=== PATIENT | female | born 1935 | race Caucasian/White ===

== ENCOUNTER 2022-06-10 13:07 | Inpatient (IN) | payer MEDICARE, OTHER ==
[~2022-06-10] VITALS: Ht 160 cm; Wt 59.4 kg
--- NOTE | 2022-06-10 13:47 | NUR ---
TECH AT BEDSIDE FOR EKG
--- NOTE | 2022-06-10 13:48 | NUR ---
RAPID FLU AND COVID SWABS OBTAINED AND SENT TO LAB
[2022-06-10 13:54] LABS: BASOPHILS % (AUTO) 0.2 % (0.0-2.0); EOSINOPHILS % (AUTO) 0.2 % (0.0-6.0); HEMATOCRIT 22 % (33-45); HEMOGLOBIN 7.1 g/dL (11.5-14.8); LYMPHOCYTES # (AUTO) 0.1 K/uL (0.8-4.8); LYMPHOCYTES % (AUTO) 5.9 % (20.0-44.0); MEAN CORPUSCULAR HGB CONC 33 g/dl (31.0-36.0); MEAN CORPUSCULAR VOLUME 113 fL (82-100); MONOCYTES # (AUTO) 0.1 K/uL (0.1-1.30); MONOCYTES % (AUTO) 4.8 % (2.0-12.0); NEUTROPHILS # (AUTO) 1.6 K/uL (1.8-8.9); NEUTROPHILS % (AUTO) 88.9 % (43.0-81.0); PLATELET COUNT (AUTO) 312 K/uL (150-450)
--- NOTE | 2022-06-10 14:43 | NUR ---
MOVE SHEET SUBMITTED.
[2022-06-10 14:50] LABS: CALCIUM, SERUM 7.6 mg/dL (8.5-10.1); CARBON DIOXIDE 23 mmol/L (21-32); CHLORIDE 101 mmol/L (98-107); CREATININE 1.4 mg/dL (0.6-1.3); GLUCOSE 108 mg/dL (74-106); POTASSIUM 3.8 mmol/L (3.5-5.1); SODIUM SERUM 133 mmol/L (136-145); UREA NITROGEN, BLOOD 24 mg/dL (7-18)
[2022-06-10 14:58] LABS: RED BLOOD CELL COUNT(AUTO) 1.93 MIL/uL (4.0-5.2)
[2022-06-10 14:59] LABS: WHITE BLOOD COUNT (AUTO) 1.8 K/uL (4.3-11.0)
[2022-06-10] MEDS ORDERED: VANCOMYCIN 1 GM in IV D5W 250 ML IV ONE (15:00)
[2022-06-10] MEDS ORDERED: CEFEPIME 1 GM in IV D5W 50 ML IV ONE (15:00)
[2022-06-10 15:06] LABS: ALANINE AMINOTRANSFERASE 17 U/L (12-78); ALBUMIN 2.7 g/dL (3.4-5.0); ALKALINE PHOSPHATASE 229 U/L (46-116); ASPARTATE AMINOTRANSFERASE 29 U/L (15-37); BILIRUBIN,DIRECT 0.1 mg/dL (0.0-0.2); BILIRUBIN,TOTAL 0.3 mg/dL (0.2-1.0); TOTAL PROTEIN, SERUM 6.2 g/dL (6.4-8.2)
--- NOTE | 2022-06-10 15:19 | NUR ---
printed circuit boards contact printer : [phone] JUAN ANTONIO daughter
[2022-06-10] MEDS ORDERED: IV NS 0.9% 1,000 ML IV ONE (15:30)
--- NOTE | 2022-06-10 15:52 | NUR ---
[facility] CALLED TUBE LANCER PAGED.
--- NOTE | 2022-06-10 16:14 | NUR ---
GOT BED ASSIGNMENT 264
--- NOTE | 2022-06-10 16:20 | NUR ---
report given to rosangela stevens
[2022-06-10] MEDS ORDERED: MORPHINE SULFATE INJ 2 MG/ML DISP.SYRIN IV PRN (16:30)
[2022-06-10] MEDS ORDERED: DEXAMETHASONE SOD PHOSPHATE 6 MG in IV D5W 50 ML IV SCH (16:30)
[2022-06-10] MEDS ORDERED: ALBUTEROL SULFATE 8 GM HFA.AER.AD IH PRN (17:00)
[2022-06-10 17:18] LABS: OCCULT BLOOD STOOL NEGATIVE (NEGATIVE)
[2022-06-10 17:29] LABS: HEMOGLOBIN 7.5 g/dL (11.5-14.8)
--- NOTE | 2022-06-10 18:54 | NUR ---
PT TRANSFERED TO 264 VIA [facility] ACLS PROTOCOL. WARM HANDOFF GIVEN TO [employer] INDUSTRIAL TECHNOLOGY TEACHER
--- NOTE | 2022-06-10 18:55 | NUR ---
ICU/RN PT TRANSFER FROM ER.AWAKE,ALERT .ORIENTED. BELARUSIAN SPEAKING. V/S STABLE.AFEBRILE.PLACED ON MONITOR.SINUS RYTHM.CONTINENT.PT HAS COVID, PNA. DR GAR AT BED SIDE.
[2022-06-10 19:00] VITALS: BP 122/60
[2022-06-10] MEDS ORDERED: REMDESIVIR (CHARGED) 200 MG, *LOADING DOSE 1 EA in IV NS 0.9% 210 ML IV ONE (19:00)
[2022-06-10 19:11] LABS: D-DIMER 1.98 mg/L(FEU (0.17-0.50)
[2022-06-10] MEDS: CEFTRIAXONE 1 G in IV D5W 50 ML IV SCH (19:53)
[2022-06-10] MEDS: IPRATROPIUM/ALBUTEROL INHALER IH SCH (19:54)
[2022-06-10 20:00] VITALS: BP_SYST 115; BP_SYST 117; BP_DIAS 53; BP_DIAS 65
--- NOTE | 2022-06-10 20:00 | NUR ---
GROUP SALES COORDINATOR NOTES Received patient lying awake in semi-raphael's position, A/O x2-3, Estonian speaking, afebrile. Attached to 02 at 4lpm via nasal cannula, tolerating well breathing non labored without effort. crackles noted at right lower lung upon auscultation posteriorly. IV access at both forearm #20, patent and intact. no signs and symptoms of pain. offered food but refused to eat. completed initial and physical assessment, spoke to the daughter. shes able to move to the bed independently. will continue to monitor.
[2022-06-10] MEDS ORDERED: ONDA4TAB5 PO (20:28)
[2022-06-10] MEDS ORDERED: HYDR500C2 PO (20:28)
[2022-06-10] MEDS ORDERED: FURO40TA5 PO (20:28)
[2022-06-10] MEDS ORDERED: METO25TA6 PO (20:28)
[2022-06-10] MEDS ORDERED: VIT C PO (20:28)
[2022-06-10] MEDS ORDERED: [UNRECOGNIZED DRUG - OTHER] PO (20:28)
[2022-06-10] MEDS ORDERED: BENZ200C53 PO (20:28)
[2022-06-10] MEDS ORDERED: LOSA50TA39 PO (20:28)
[2022-06-10] MEDS ORDERED: APRAZOLAM PO (20:28)
[2022-06-10] MEDS ORDERED: SUMA100T16 PO (20:28)
[2022-06-10] MEDS ORDERED: ASA (20:28)
[2022-06-10] MEDS ORDERED: ESOM40CA PO (20:28)
[2022-06-10] MEDS ORDERED: AMLO-213 PO (20:28)
[2022-06-10] MEDS ORDERED: LORA-259 PO (20:28)
[2022-06-10] MEDS ORDERED: CHOL400T15 PO (20:28)
[2022-06-10] MEDS ORDERED: ACET-73 PO (20:28)
[2022-06-10] MEDS ORDERED: QUET50TA PO (20:28)
[2022-06-10] MEDS ORDERED: SERT25TA PO (20:28)
[2022-06-10 21:00] VITALS: BP 115/53
[2022-06-10] MEDS: HEPARIN SODIUM, PORCINE 5000 UNITS/1 ML VIAL SQ SCH (21:00)
--- NOTE | 2022-06-10 21:10 | NUR ---
ICU NOTES Patient PT 10.7 INR 1.02,PTT 33.1 done at 18.20 and H/H 7.1/22 done at 1639.Patient has Heparin SQ ordered for 2100. There is an order from Dr. Morfin to do another PT/INR AT 1934.Verified with DR Gabino Spears if to give Heparin SQ. Per to hold Heparin tonight and do ordered lab works.
[2022-06-10 22:00] VITALS: BP 114/50
[2022-06-10 22:12] LABS: ALBUMIN 2.7 g/dL (3.4-5.0); BILIRUBIN,DIRECT 0.1 mg/dL (0.0-0.2); BILIRUBIN,TOTAL 0.3 mg/dL (0.2-1.0); TOTAL PROTEIN, SERUM 6.4 g/dL (6.4-8.2)
[2022-06-10 22:36] LABS: BAND % (MANUAL) 1 % (0.0-5.0); LYMPHOCYTES % (MANUAL) 9 % (16-48); MONOCYTES % (MANUAL) 6 % (0-11.0); NEUTROPHILS % (MANUAL) 84 (42-76)
[2022-06-10 23:00] VITALS: BP 97/47
[2022-06-11] VITALS (17 sets, daily range): BP systolic 101–141; BP diastolic 31–89
[2022-06-11] MEDS: IPRATROPIUM/ALBUTEROL INHALER IH SCH ×5 (00:26→23:36)
--- NOTE | 2022-06-11 05:37 | NUR ---
SPICE ROOM WORKER NOTES Patient refused lab drawn x2. Explained importance of checking labs x2. still refused.
--- NOTE | 2022-06-11 07:40 | NUR ---
ICU/RN PT IS RESTING ON 4L N/C SAT O2-96%.NO S/S OF DISTRESS.NO SOB.NO PAIN REPORTED AT THIS TIME.V/S STABLE,AFEBRILE.IV-HL.SKIN INTACT.PT USE BEDSIDE COMMODE.PT REFUSED AM LABS
[2022-06-11] MEDS: HEPARIN SODIUM, PORCINE 5000 UNITS/1 ML VIAL SQ SCH ×2 (08:16→21:00)
[2022-06-11] MEDS: DEXAMETHASONE SOD PHOSPHATE 10 MG/ML VIAL IV SCH (08:28)
[2022-06-11 11:00] LABS: BASOPHILS % (AUTO) 0.1 % (0.0-2.0); EOSINOPHILS % (AUTO) 0.3 % (0.0-6.0); HEMATOCRIT 23 % (33-45); HEMOGLOBIN 7.4 g/dL (11.5-14.8); LYMPHOCYTES # (AUTO) 0.1 K/uL (0.8-4.8); LYMPHOCYTES % (AUTO) 5.2 % (20.0-44.0); MEAN CORPUSCULAR HGB CONC 33 g/dl (31.0-36.0); MEAN CORPUSCULAR VOLUME 111 fL (82-100); MONOCYTES # (AUTO) 0.1 K/uL (0.1-1.30); MONOCYTES % (AUTO) 3.9 % (2.0-12.0); NEUTROPHILS # (AUTO) 1.6 K/uL (1.8-8.9); NEUTROPHILS % (AUTO) 90.5 % (43.0-81.0); PLATELET COUNT (AUTO) 312 K/uL (150-450); RED BLOOD CELL COUNT(AUTO) 2.04 MIL/uL (4.0-5.2)
[2022-06-11 11:04] LABS: WHITE BLOOD COUNT (AUTO) 1.8 K/uL (4.3-11.0)
[2022-06-11 11:11] LABS: CALCIUM, SERUM 7.8 mg/dL (8.5-10.1); POTASSIUM 3.8 mmol/L (3.5-5.1)
[2022-06-11 11:28] LABS: ALBUMIN 2.6 g/dL (3.4-5.0); BILIRUBIN,DIRECT 0.1 mg/dL (0.0-0.2); BILIRUBIN,TOTAL 0.3 mg/dL (0.2-1.0); TOTAL PROTEIN, SERUM 6.1 g/dL (6.4-8.2)
[2022-06-11] MEDS: IV D5/ 0.9% NACL 1,000 ML IV PRN (11:42)
--- NOTE | 2022-06-11 12:00 | NUR ---
ICU/RN NEW MID LINE INSERTED. ON THE LEFT UPPER ARM. PM CARE PROVIDED.DUE MEDS ARE GIVEN ORDERED.PT EATS 50% FROM HER MEAL TRAY. SEEN THE PT OK TO TRANSFER TO TELE UNIT.
[2022-06-11] MEDS: ENSURE ENLIVE CHOC 237 ML CAN PO SCH ×2 (12:33→16:37)
--- NOTE | 2022-06-11 13:40 | NUR ---
ICU/RN PT TRANSFER TO TELE UNIT IN STABLE CONDITION.V/S STABLE,AFEBRILE. NO PAIN REPORTED AT THIS TIME.
--- NOTE | 2022-06-11 14:30 | NUR ---
JACQUELINE RN NOTES RECEIVED PATIENT FROM ICU, RENNY RN FROM ICU GAVE BEDSIDE REPORT. PATIENT IS ALERT AND VERBALLY RESPONSIVE, COMORAN SPEAKING ONLY, NOTED WITH ANXIETY. ON 4LPM 02 VIA NC TOLERATING WELL, NO SOB NOTED, RESPIRATION EVEN AND UNLABORED. DENIES ANY PAIN. NOTED WITH FRANCISCO MIDLINE PATENT AND INTACT FLUSHES WELL, ON IV FLUIDS RUNNING ORDERED. ON TELE MONITOR WITH SR HR 78. CALL LIGHT WITHIN REACH. BED IN LOWEST POSITION. BED ALARM ON. CLARIFY REMDISIVIR ORDER TO DR. MORALES, PER OK TO START. NOTED AND CARRIED OUT. PLAN OF CARE CONTINUE.
[2022-06-11 14:40] LABS: THYROID STIMULATING HORMONE 0.436 uIU/mL (0.358-3.74)
[2022-06-11] MEDS ORDERED: REMDESIVIR (CHARGED) 200 MG, *LOADING DOSE 1 EA in IV NS 0.9% 210 ML IV ONE (15:00)
[2022-06-11 15:06] LABS: C-REACTIVE PROTEIN 7.2 mg/dL (0.0-0.9)
--- NOTE | 2022-06-11 16:00 | NUR ---
NOTED PATIENT IS VERY ANXIOUS AND SCARED, NOTED PATIENT IS TAKING PRN ATIVAN AND LORAZEPAM AT HOME, DR. BLAS NOTIFIED, AWAITING FOR ANSWER.
--- NOTE | 2022-06-11 16:35 | NUR ---
PATIENT SPOKE TO DAUGHTER, PATIENT IS REFUSING FOOD THAT DAUGHTER BROUGHT. PLAN OF CARE CONTINUE.
[2022-06-11] MEDS: CEFTRIAXONE 1 G in IV D5W 50 ML IV SCH (17:11)
[2022-06-11] MEDS: ACETAMINOPHEN 325 MG TABLET PO PRN (18:07)
--- NOTE | 2022-06-11 18:10 | NUR ---
NOTED PATIENT DOESN'T WANT TO EAT DINNER, TRIED FEEDING HER, PATIENT SAID NO, NOTED PATIENT CRYING AND VERY ANXIOUS, INFORMED DAUGHTER VIA PHONE, DAUGHTER WANTED TO VISIT AND FEED PATIENT, I TOLD DAUGHTER TO TELL THE PATIENT TO EAT, PER DAUGHTER SHE TOLD THE MOTHER BUT SHE WON'T LISTEN. INFORMED NURSERYMAN ASSISTANT MAJO AND CHARGE NURSE BRITTANY ABOUT THE DAUGHTER WANTING TO COME HERE AND FEED THE PATIENT, PER NURSERYMAN ASSISTANT FAMILY MEMBER CAN'T COME INSIDE THE ROOM AND THEY CAN ONLY DO PHONECALL OR VIDEOCALL, WILL INFORMED THE DAUGHTER OF THE HOSPITAL POLICY.
--- NOTE | 2022-06-11 18:36 | NUR ---
TELE CLOSING RN NOTES PATIENT IS ALERT AND VERBALLY RESPONSIVE, VIETNAMESE SPEAKING ONLY, NOTED WITH ANXIETY. ON 2LPM 02 VIA NC TOLERATING WELL, NO SOB NOTED, RESPIRATION EVEN AND UNLABORED. DENIES ANY PAIN AT THIS MOMENT. NOTED WITH FRANCISCO MIDLINE PATENT AND INTACT FLUSHES WELL, ON IV FLUIDS RUNNING ORDERED. ON TELE MONITOR WITH SR. CALL LIGHT WITHIN REACH. BED IN LOWEST POSITION. BED ALARM ON. WILL ENDORSE TO NIGHT NURSE FOR YOSELIN.
[2022-06-11] MEDS ORDERED: REMDESIVIR (CHARGED) 100 MG in IV NS 0.9% 230 ML IV SCH (19:00)
--- NOTE | 2022-06-11 19:14 | NUR ---
RECEIVED NEW ORDER FROM DR. WATKINS ATIVAN 0.5 MG PO Q 6 HRS PRN FOR ANXIETY, NOTED AND CARRIED OUT, ENDORSED TO TISH CONNORS.
--- NOTE | 2022-06-11 19:20 | NUR ---
CALLED DAUGHTER JUAN ANTONIO TO INFORMED THAT PER MARKET ASSET PROTECTION MANAGER MAJO THAT SHE CANNOT COME IN TO FEED THE PATIENT, PER JUAN ANTONIO SHE'S ON HER WAY TO THE HOSPITAL ALREADY AND IF SHE CAN'T COME IN SHE WILL TAKE TRANSFER HER MOTHER TO A DIFFERENT HOSPITAL, INFORMED CHARGE NURSE BETSY CONNORS.
--- NOTE | 2022-06-11 19:40 | NUR ---
RN OPENING NOTES RECEIVED PATIENT AWAKE IN BED ALERT AND VERBALLY RESPONSIVE, MACEDONIAN SPEAKING ONLY, NOTED WITH ANXIETY AND GRIMACING. ON 2LPM 02 VIA NC TOLERATING WELL, NO SOB NOTED, RESPIRATION EVEN AND UNLABORED. DENIES ANY PAIN. NOTED WITH FRANCISCO MIDLINE PATENT AND INTACT FLUSHES WELL, ON IV FLUIDS RUNNING ORDERED. ON TELE MONITOR WITH SR HR 78. CALL LIGHT WITHIN REACH. BED IN LOWEST POSITION. BED ALARM ON. PT HAS BEEN REFUSING TO EAT FOOD, WILL CONTINUE TO MONITOR THROUGHOUT THE SHIFT.
--- NOTE | 2022-06-11 21:40 | NUR ---
RN NOTE NOTIFIED MD ABOUT HGB AT 7.4 NO S/SX OF BLEEDING, PT HAS SCHEDULED HEPARIN, MD ORDERED TO HOLD DOSE FOR NOW. WILL CONT TO MONITOR.
[2022-06-12] VITALS: BP 133/80
[2022-06-12 04:00] VITALS: BP 119/60
[2022-06-12 04:56] LABS: BASOPHILS % (MANUAL) 0 % (0.0-2.0); EOSINOPHILS % (MANUAL) 0 % (0-4); LYMPHOCYTES % (MANUAL) 9 % (16-48); MONOCYTES % (MANUAL) 4 % (0-11.0); NEUTROPHILS % (MANUAL) 87 (42-76)
[2022-06-12] MEDS: IPRATROPIUM/ALBUTEROL INHALER IH SCH ×3 (05:24→18:12)
[2022-06-12] MEDS: IV D5/ 0.9% NACL 1,000 ML IV PRN (05:25)
--- NOTE | 2022-06-12 06:35 | NUR ---
RN CLOSING NOTES PATIENT SLEEPING IN BED BUT EASILY AROUSABLE TO TOUCH AND VOICE, ALERT AND VERBALLY RESPONSIVE, LATVIAN SPEAKING ONLY, ON 2LPM 02 VIA NC TOLERATING WELL, NO SOB NOTED, RESPIRATION EVEN AND UNLABORED. DENIES ANY PAIN. NOTED WITH FRANCISCO MIDLINE PATENT AND INTACT FLUSHES WELL, ON IV FLUIDS RUNNING ORDERED. ON TELE MONITOR WITH SR HR 78. CALL LIGHT WITHIN REACH. BED IN LOWEST POSITION. BED ALARM ON. ALL DUE MEDS GIVEN, KEPT DRY AND CLEAN, WILL ENDORSE TO AM SHIFT NURSE FOR CONTINUITY OF CARE.
[2022-06-12 07:07] LABS: BASOPHILS % (AUTO) 0.2 % (0.0-2.0); EOSINOPHILS % (AUTO) 0.1 % (0.0-6.0); HEMATOCRIT 23 % (33-45); HEMOGLOBIN 7.6 g/dL (11.5-14.8); LYMPHOCYTES # (AUTO) 0.1 K/uL (0.8-4.8); LYMPHOCYTES % (AUTO) 8.1 % (20.0-44.0); MEAN CORPUSCULAR HGB CONC 33 g/dl (31.0-36.0); MEAN CORPUSCULAR VOLUME 111 fL (82-100); MONOCYTES # (AUTO) 0.2 K/uL (0.1-1.30); MONOCYTES % (AUTO) 10.5 % (2.0-12.0); NEUTROPHILS # (AUTO) 1.4 K/uL (1.8-8.9); NEUTROPHILS % (AUTO) 81.1 % (43.0-81.0); PLATELET COUNT (AUTO) 385 K/uL (150-450); RED BLOOD CELL COUNT(AUTO) 2.07 MIL/uL (4.0-5.2)
[2022-06-12 07:13] LABS: CALCIUM, SERUM 8.2 mg/dL (8.5-10.1); CREATININE 0.9 mg/dL (0.6-1.3); MAGNESIUM 1.7 mg/dL (1.8-2.4); PHOSPHORUS 2.7 mg/dL (2.5-4.9); POTASSIUM 3.8 mmol/L (3.5-5.1)
[2022-06-12 07:15] LABS: WHITE BLOOD COUNT (AUTO) 1.8 K/uL (4.3-11.0)
[2022-06-12 07:21] LABS: ALBUMIN 2.6 g/dL (3.4-5.0); BILIRUBIN,DIRECT 0.1 mg/dL (0.0-0.2); BILIRUBIN,TOTAL 0.2 mg/dL (0.2-1.0); TOTAL PROTEIN, SERUM 6.3 g/dL (6.4-8.2)
[2022-06-12] MEDS: ENSURE ENLIVE CHOC 237 ML CAN PO SCH ×3 (07:32→16:09)
[2022-06-12 08:00] VITALS: BP 125/61
[2022-06-12 08:07] LABS: IMMUNOGLOBULIN A, SERUM 350 mg/dL (64-422); IMMUNOGLOBULIN G, SERUM 1025 mg/dL (586-1602); IMMUNOGLOBULIN M, SERUM 60 mg/dL (26-217)
[2022-06-12] MEDS: DEXAMETHASONE SOD PHOSPHATE 10 MG/ML VIAL IV SCH (08:23)
[2022-06-12] MEDS: HEPARIN SODIUM, PORCINE 5000 UNITS/1 ML VIAL SQ SCH ×2 (08:25→21:50)
[2022-06-12] MEDS ORDERED: MAGNESIUM OXIDE 400 MG TABLET PO ONE (10:00)
[2022-06-12 12:00] VITALS: BP 133/70
[2022-06-12 12:07] LABS: *ANA ANTI-CENTROMERE B AB <0.2 AI (0.0-0.9); *ANA ANTI-DNA(DS) AB, QN <1 IU/mL (0-9); *ANA ANTI-JO-1 <0.2 AI (0.0-0.9); *ANA ANTICHROMATIN ANTIBODY <0.2 AI (0.0-0.9); *ANA RNP ANTIBODIES 1.5 AI (0.0-0.9); *ANA SJOGREN'S ANTI-SS-A <0.2 AI (0.0-0.9); *ANA SJOGREN'S ANTI-SS-B <0.2 AI (0.0-0.9); *ANAANTI-SCLERODERMA-70 AB <0.2 AI (0.0-0.9); *ANASMITH AB <0.2 AI (0.0-0.9)
[2022-06-12 14:07] LABS: *SPE A/G RATIO 0.8 (0.7-1.7); *SPE ALPHA-1-GLOBULIN 0.3 g/dL (0.0-0.4); *SPE M-SPIKE Not Observed g/dL (Not Observed)
[2022-06-12] MEDS: REMDESIVIR (CHARGED) 100 MG in IV NS 0.9% 100 ML IV SCH (15:45)
[2022-06-12 16:00] VITALS: BP 131/75
[2022-06-12] MEDS: FERROUS SULFATE (325 MG) 325 MG/TAB TABLET PO SCH (16:08)
[2022-06-12] MEDS: CEFTRIAXONE 1 G in IV D5W 50 ML IV SCH (17:37)
--- NOTE | 2022-06-12 18:31 | NUR ---
RN CLOSING NOTES PATIENT SLEEPING IN BED, ABUSABLE TO TOUCH AND VOICE, YAKUT SPEAKING ONLY, ON NC 2L TOLERATING WELL, NO SOB NOTED, RESPIRATION EVEN AND UNLABORED. DENIES ANY PAIN. NOTED WITH FRANCISCO MIDLINE PATENT AND INTACT FLUSHES WELL, ON IV FLUIDS RUNNING ORDERED. ON TELE MONITOR WITH SR HR 78. CALL LIGHT WITHIN REACH. BED IN LOWEST POSITION. BED ALARM ON. ALL DUE MEDS GIVEN, KEPT DRY AND CLEAN, WILL ENDORSE TO THE POT FLUXER NURSE FOR CONTINUITY OF CARE.
[2022-06-12 20:00] VITALS: BP 137/76
--- NOTE | 2022-06-12 20:06 | NUR ---
CLOTH HAULER OPENING NOTES: RECEIVED PATIENT AWAKE IN BED, BED IN LOW POSITION CALL LIGHTS WITHIN REACH, NO COMPLAIN OF PAIN AND DISCOMFORT AT THIS TIME ON O2 INHALATION AT 2LPM SATURATING WELL, PATIENT IS A/OX3 CROATIAN SPEAKING ABLE TO MAKE NEEDS KNOWN, COVID (+) NO SOB WAS OBSERVED, ON TELE MONITOR- SR-79, IV LINE AT FRANCISCO ML WITH ONGOING D5 NS @50ML/HR INFUSING WELL, PATIENT KEPT CLEAN AND DRY ALL NEEDS MET WILL CONTINUE TO MONITOR.
[2022-06-12 22:10] LABS: LYMPHOCYTES % (MANUAL) 14 % (16-48); MONOCYTES % (MANUAL) 8 % (0-11.0); NEUTROPHILS % (MANUAL) 78 (42-76)
[2022-06-13] VITALS: BP 135/75
[2022-06-13] MEDS: IPRATROPIUM/ALBUTEROL INHALER IH SCH ×2 (00:19→06:12)
[2022-06-13 04:00] VITALS: BP 124/66
[2022-06-13 06:18] LABS: ALANINE AMINOTRANSFERASE 23 U/L (12-78); ALBUMIN 2.7 g/dL (3.4-5.0); ALKALINE PHOSPHATASE 255 U/L (46-116); ASPARTATE AMINOTRANSFERASE 34 U/L (15-37); BILIRUBIN,DIRECT 0.1 mg/dL (0.0-0.2); BILIRUBIN,TOTAL 0.3 mg/dL (0.2-1.0); CALCIUM, SERUM 8.4 mg/dL (8.5-10.1); CARBON DIOXIDE 26 mmol/L (21-32); CHLORIDE 103 mmol/L (98-107); CREATININE 0.9 mg/dL (0.6-1.3); GLUCOSE 119 mg/dL (74-106); POTASSIUM 3.9 mmol/L (3.5-5.1); SODIUM SERUM 139 mmol/L (136-145); TOTAL PROTEIN, SERUM 6.4 g/dL (6.4-8.2); UREA NITROGEN, BLOOD 21 mg/dL (7-18)
--- NOTE | 2022-06-13 06:30 | NUR ---
CONTROL BOARD OPERATOR CLOSING NOTES: RECEIVED PATIENT SLEEP IN BED COMFORTABLY, AROUSABLE TO VERBAL STIMULI, BED IN LOW POSITION CALL LIGHT WITHIN REACH, NO COMPLAIN OF PAIN AND DISCOMFORT AT THIS TIME, ON O2 INHALATION AT 2 LPM SATURATING WELL, PATIENT IS A/OX3 ABLE TO MAKE NEEDS KNOWN, ON TELE MONITOR-SE90 PATIENT KEPT CLEAN AND DRY ALL NEEDS MET ENDORSE TO INCOMING SHIFT.
[2022-06-13] MEDS: IV D5/ 0.9% NACL 1,000 ML IV PRN (06:44)
--- NOTE | 2022-06-13 07:30 | NUR ---
TIRE BLADDER MAKER OPENING NOTES RECEIVED PATIENT ON BED AWAKE AND A/O X2, SOUTH KOREAN SPEAKING. ON O2 AT 2LPM VIA NASAL CANNULA TOLERATING WELL. NO SOB NOTED. NOT IN DISTRESS. WITH COMPLAINTS OF HEADACHE AT THE SCALE OF 4/10. COMFORT MEASURES PROVIDED. WITH IV ACCESS AT THE LEFT UPPER ARM MIDLINE WITH IVF RUNNING D5NS AT 50ML/HR INFUSING WELL. ON TELE MONITOR CURRENTLY READING SINUS RHYTHM AT 80BPM. SAFETY MEASURES IN PLACED. CALL LIGHT WITHIN REACH. BED ON LOWEST LOCKED POSITION, SIDE RAILS UP X2. WILL CONTINUE TO MONITOR.
[2022-06-13 08:00] VITALS: BP 116/66
[2022-06-13 08:49] LABS: BASOPHILS % (AUTO) 0.4 % (0.0-2.0); EOSINOPHILS % (AUTO) 0.1 % (0.0-6.0); HEMATOCRIT 25 % (33-45); HEMOGLOBIN 8.1 g/dL (11.5-14.8); LYMPHOCYTES # (AUTO) 0.1 K/uL (0.8-4.8); LYMPHOCYTES % (AUTO) 4.4 % (20.0-44.0); MEAN CORPUSCULAR HGB CONC 33 g/dl (31.0-36.0); MEAN CORPUSCULAR VOLUME 111 fL (82-100); MONOCYTES # (AUTO) 0.2 K/uL (0.1-1.30); MONOCYTES % (AUTO) 9.9 % (2.0-12.0); NEUTROPHILS % (AUTO) 85.2 % (43.0-81.0); PLATELET COUNT (AUTO) 428 K/uL (150-450); RED BLOOD CELL COUNT(AUTO) 2.24 MIL/uL (4.0-5.2); WHITE BLOOD COUNT (AUTO) 2.4 K/uL (4.3-11.0)
[2022-06-13] MEDS: FERROUS SULFATE (325 MG) 325 MG/TAB TABLET PO SCH ×2 (09:02→16:50)
[2022-06-13] MEDS: DEXAMETHASONE SOD PHOSPHATE 10 MG/ML VIAL IV SCH (09:02)
[2022-06-13] MEDS: ACETAMINOPHEN 325 MG TABLET PO PRN ×2 (09:02→20:19)
[2022-06-13] MEDS: HEPARIN SODIUM, PORCINE 5000 UNITS/1 ML VIAL SQ SCH ×2 (09:05→20:11)
[2022-06-13] MEDS: ENSURE ENLIVE CHOC 237 ML CAN PO SCH ×3 (09:08→16:50)
[2022-06-13 11:43] LABS: LYMPHOCYTES % (MANUAL) 11 % (16-48); MONOCYTES % (MANUAL) 6 % (0-11.0); NEUTROPHILS % (MANUAL) 83 (42-76)
[2022-06-13 12:00] VITALS: BP_SYST 116; BP_SYST 124; BP_DIAS 63; BP_DIAS 66
[2022-06-13] MEDS: ONDANSETRON HCL/PF 4 MG/2 ML VIAL IVP PRN (14:03)
[2022-06-13] MEDS: LORAZEPAM 0.5 MG TABLET PO PRN (14:06)
[2022-06-13 16:00] VITALS: BP 125/68
[2022-06-13] MEDS: REMDESIVIR (CHARGED) 100 MG in IV NS 0.9% 100 ML IV SCH (16:50)
[2022-06-13] MEDS: CEFTRIAXONE 1 G in IV D5W 50 ML IV SCH (17:59)
--- NOTE | 2022-06-13 19:30 | NUR ---
PUBLIC ADDRESS SYSTEM OPERATOR CLOSING NOTES PATIENT ON BED RESTING AND A/O X2, WELSH SPEAKING. ON O2 AT 2LPM VIA NASAL CANNULA TOLERATING WELL. NO SOB NOTED. NOT IN DISTRESS. WITH NO COMPLAINTS OF PAIN OR DISCOMFORT AT THIS TIME. WITH IV ACCESS AT THE LEFT UPPER ARM MIDLINE WITH IVF RUNNING D5NS AT 50ML/HR INFUSING WELL. ON TELE MONITOR CURRENTLY READING SINUS RHYTHM AT 83BPM. DUE MEDS GIVEN. SAFETY MEASURES IN PLACED. CALL LIGHT WITHIN REACH. BED ON LOWEST LOCKED POSITION, SIDE RAILS UP X2. WILL ENDORSE TO NEXT SHIFT FOR YOSELIN.
--- NOTE | 2022-06-13 19:45 | NUR ---
BOILER RELINER NOTES PATIENT ON BED RESTING AND A/O X2, KIS[place]ILI SPEAKING. ON O2 AT 2LPM VIA NASAL CANNULA TOLERATING WELL. NO SOB NOTED. NOT IN DISTRESS. WITH NO COMPLAINTS OF PAIN OR DISCOMFORT AT THIS TIME. WITH IV ACCESS AT THE LEFT UPPER ARM MIDLINE WITH IVF RUNNING D5NS AT 50ML/HR INFUSING WELL. ON TELE MONITOR CURRENTLY READING SINUS RHYTHM AT 83BPM.CALL LIGHT WITHIN REACH. BED ON LOWEST LOCKED POSITION, SIDE RAILS UP X2.
--- NOTE | 2022-06-13 20:26 | NUR ---
RN NOTE PT REPORTING MILD PAIN PRN TYLENOL GIVEN TOLERATED WELL. NO NAUSEA REPORTED AT THIS TIME.
[2022-06-13 20:29] VITALS: BP 116/69
[2022-06-14] VITALS: BP 135/77
[2022-06-14 04:24] VITALS: BP 146/90
[2022-06-14] MEDS: IPRATROPIUM/ALBUTEROL INHALER IH SCH ×4 (06:00→17:37)
[2022-06-14 07:02] LABS: BASOPHILS % (AUTO) 0.2 % (0.0-2.0); HEMATOCRIT 24 % (33-45); HEMOGLOBIN 7.9 g/dL (11.5-14.8); LYMPHOCYTES # (AUTO) 0.2 K/uL (0.8-4.8); LYMPHOCYTES % (AUTO) 5.1 % (20.0-44.0); MEAN CORPUSCULAR HGB CONC 33 g/dl (31.0-36.0); MEAN CORPUSCULAR VOLUME 110 fL (82-100); MONOCYTES # (AUTO) 0.4 K/uL (0.1-1.30); NEUTROPHILS # (AUTO) 2.7 K/uL (1.8-8.9); NEUTROPHILS % (AUTO) 82.7 % (43.0-81.0); PLATELET COUNT (AUTO) 423 K/uL (150-450); RED BLOOD CELL COUNT(AUTO) 2.21 MIL/uL (4.0-5.2); WHITE BLOOD COUNT (AUTO) 3.3 K/uL (4.3-11.0)
[2022-06-14 07:34] LABS: ALBUMIN 2.4 g/dL (3.4-5.0); BILIRUBIN,DIRECT 0.1 mg/dL (0.0-0.2); BILIRUBIN,TOTAL 0.3 mg/dL (0.2-1.0); CALCIUM, SERUM 7.9 mg/dL (8.5-10.1); CREATININE 0.9 mg/dL (0.6-1.3); POTASSIUM 3.6 mmol/L (3.5-5.1); TOTAL PROTEIN, SERUM 5.7 g/dL (6.4-8.2)
[2022-06-14 08:00] VITALS: BP 118/71
[2022-06-14] MEDS: ENSURE ENLIVE CHOC 237 ML CAN PO SCH ×3 (08:00→17:36)
--- NOTE | 2022-06-14 08:08 | NUR ---
RN OPENING NOTE RECEIVED PATIENT IN BED, AO X 2, SPANISH SPEAKING. ABLE TO RESPONDS ALL STIMULI. RESPIRATORY EVEN AND UNLABORED ON OXYGEN AT 2Ls VIA NC. IN NO ACUTE DISTRESS OBSERVED. SKIN IS WARM TO TOUCH, KEEP CLEAN/DRY. KEPT ELEVATED HOB FOR ASPIRATION PRECAUTION/ENSURE AIRWAY, ALSO LOWEST BED POSITIONED. BED ALARM IS ON AT ALL THE TIME FOR SAFETY. CALL LIGHT WITHIN REACH, WILL CONTINUE TO MONITOR.
[2022-06-14] MEDS: FERROUS SULFATE (325 MG) 325 MG/TAB TABLET PO SCH ×2 (09:01→17:36)
[2022-06-14] MEDS: DEXAMETHASONE SOD PHOSPHATE 10 MG/ML VIAL IV SCH (09:01)
[2022-06-14] MEDS: HEPARIN SODIUM, PORCINE 5000 UNITS/1 ML VIAL SQ SCH ×2 (09:05→21:07)
[2022-06-14] MEDS: ONDANSETRON HCL/PF 4 MG/2 ML VIAL IVP PRN ×2 (11:54→21:18)
[2022-06-14] MEDS: ACETAMINOPHEN 325 MG TABLET PO PRN (14:26)
[2022-06-14] MEDS: REMDESIVIR (CHARGED) 100 MG in IV NS 0.9% 100 ML IV SCH (14:26)
[2022-06-14 16:00] VITALS: BP 130/66
[2022-06-14] MEDS: CEFTRIAXONE 1 G in IV D5W 50 ML IV SCH (17:35)
--- NOTE | 2022-06-14 18:38 | NUR ---
RN CLOSING NOTE PATIENT RESTING IN BED. IN NO ACUTE DISTRESS OBSERVED. NO ADVERSE REACTION OBSERVED FROM ABX TREATMENT. RESPIRATORY EVEN AND UNLABORED IN ROM AIR. IN NO RESPIRATORY DISTRESS NOTED. SKIN IS WARM TO TOUCH KEEP CLEAN/DRY. ENCOURAGED PATIENT TO ORAL FLUID INTAKE TOLERATED. KEPT ELEVATED HOB FOR ENSURE AIRWAY/ASPIRATION PRECAUTION, AND LOWEST BED POSITION. BED ALARM IS ON AT ALL THE TIME FOR SAFETY. CALL LIGHT WITHIN REACH, WILL ENDORSE LIFE SKILLS WORKER.
--- NOTE | 2022-06-14 19:55 | NUR ---
STEAM POWERPLANT SUPERVISOR OPENING NOTE PATIENT AWAKE IN BED, PT ALERT/ORIENTED X 2, PT PRIMARILY ALBANIAN SPEAKING. PATIENT STABLE ON RA, NO S/S OF DISTRESS OR SOB NOTED, BREATHING EVEN AND UNLABORED. PT ON EXTERNAL MANAGER BANKING READING SINUS RHYTHM, HR: 62. FRANCISCO MIDLINE INTACT AND INFUSING D5NS @ 50 ML/HR. SAFETY MEASURES IN PLACE: CALL LIGHT WITHIN REACH, SIDE RAILS UP X 3, BED LOCKED IN LOWEST POSITION, HOB ELEVATED, BED ALARM ON. WILL CONTINUE TO MONITOR PATIENT
[2022-06-14 20:00] VITALS: BP 109/68
--- NOTE | 2022-06-14 21:18 | NUR ---
FORESTRY PILOT NOTE PATIENT NOTED WITH 1 EPISODE OF EMESIS, ZOFRAN 4 MG IV GIVEN ORDERED. WILL CONTINUE TO MONITOR PATIENT
[2022-06-14 21:40] LABS: LYMPHOCYTES % (MANUAL) 6 % (16-48); MONOCYTES % (MANUAL) 12 % (0-11.0); NEUTROPHILS % (MANUAL) 82 (42-76)
[2022-06-15] VITALS: BP 151/65
[2022-06-15] MEDS: IPRATROPIUM/ALBUTEROL INHALER IH SCH ×5 (00:51→23:29)
--- NOTE | 2022-06-15 01:18 | NUR ---
WEB PROGRAMMER NOTE PATIENT'S SPO2 ON ROOM AIR DROPPED TO 86%, PATIENT PLACED BACK ON 2 LPM OF 02 VIA NASAL CANNULA, SPO2 NOW 96%. WILL CONTINUE TO MONITOR
[2022-06-15] MEDS: LORAZEPAM 0.5 MG TABLET PO PRN (01:21)
--- NOTE | 2022-06-15 03:05 | NUR ---
PACKAGING INSPECTOR NOTE PATIENT RESTLESS AND ANXIOUS. PRN ATIVAN 0.5 MG PO GIVEN ORDERED, WILL CONTINUE TO MONITOR
[2022-06-15 04:00] VITALS: BP 137/71
[2022-06-15] MEDS: IV D5/ 0.9% NACL 1,000 ML IV PRN (05:04)
--- NOTE | 2022-06-15 06:25 | NUR ---
LOG OPERATIONS COORDINATOR CLOSING NOTE PATIENT SLEEPING IN BED, PT ALERT/ORIENTED X 2, PT SETSWANA SPEAKING. PATIENT STABLE ON 2LPM OF 02 VIA NASAL CANNULA, NO S/S OF DISTRESS OR SOB NOTED, BREATHING EVEN AND UNLABORED. ATTEMPTED TO TITRATE PATIENT TO RA, HOWEVER, SPO2 DROPPED TO 86% AFTER A COUPLE HOURS. PT ON EXTERNAL CIVIL ESTIMATOR READING SINUS ELEN, HR: 55 AT THIS TIME. FRANCISCO MIDLINE INTACT AND INFUSING D5NS @ 50 ML/HR. PATIENT WAS CALM AND SLEPT WELL AFTER ATIVAN WAS GIVEN. MEDICATIONS GIVEN ORDERED, PT NEEDS MET THROUGHOUT SHIFT. SAFETY MEASURES IN PLACE: CALL LIGHT WITHIN REACH, SIDE RAILS UP X 3, BED LOCKED IN LOWEST POSITION, HOB ELEVATED, BED ALARM ON. WILL ENDORSE TO DAYSHIFT RN FOR CONTINUITY OF CARE
[2022-06-15 08:00] VITALS: BP 122/76
[2022-06-15] MEDS: FERROUS SULFATE (325 MG) 325 MG/TAB TABLET PO SCH ×2 (08:17→17:43)
[2022-06-15] MEDS: DEXAMETHASONE SOD PHOSPHATE 10 MG/ML VIAL IV SCH (08:17)
[2022-06-15] MEDS: ENSURE ENLIVE CHOC 237 ML CAN PO SCH ×3 (08:17→17:43)
[2022-06-15] MEDS: HEPARIN SODIUM, PORCINE 5000 UNITS/1 ML VIAL SQ SCH ×2 (08:20→20:46)
--- NOTE | 2022-06-15 11:15 | NUR ---
RN NOTE DR. MATT ORDERED PATIENT ON ROOM AIR. WILL MONITOR PATIENT'S OXYGEN LEVEL AND WILL LET THE KNOW. PATIENT IS GOING HOME TOMORROW BUT THE DAUGHTER IS LOOKING FOR A HOME HEALTH. PATIENT NEEDS TO HAVE OXYGEN AT HOME.
[2022-06-15 12:00] VITALS: BP 130/66
[2022-06-15 12:28] LABS: BASOPHILS % (AUTO) 0.1 % (0.0-2.0); EOSINOPHILS % (AUTO) 0.1 % (0.0-6.0); HEMATOCRIT 25 % (33-45); LYMPHOCYTES # (AUTO) 0.1 K/uL (0.8-4.8); LYMPHOCYTES % (AUTO) 2.4 % (20.0-44.0); MEAN CORPUSCULAR HGB CONC 32 g/dl (31.0-36.0); MEAN CORPUSCULAR VOLUME 111 fL (82-100); MONOCYTES # (AUTO) 0.3 K/uL (0.1-1.30); NEUTROPHILS # (AUTO) 3.9 K/uL (1.8-8.9); NEUTROPHILS % (AUTO) 90.4 % (43.0-81.0); PLATELET COUNT (AUTO) 446 K/uL (150-450); RED BLOOD CELL COUNT(AUTO) 2.23 MIL/uL (4.0-5.2); WHITE BLOOD COUNT (AUTO) 4.3 K/uL (4.3-11.0)
[2022-06-15 12:51] LABS: CALCIUM, SERUM 7.9 mg/dL (8.5-10.1); CREATININE 0.9 mg/dL (0.6-1.3); POTASSIUM 3.5 mmol/L (3.5-5.1)
[2022-06-15 12:57] LABS: ALBUMIN 2.6 g/dL (3.4-5.0); BILIRUBIN,DIRECT 0.1 mg/dL (0.0-0.2); BILIRUBIN,TOTAL 0.4 mg/dL (0.2-1.0); TOTAL PROTEIN, SERUM 5.7 g/dL (6.4-8.2)
[2022-06-15] MEDS: REMDESIVIR (CHARGED) 100 MG in IV NS 0.9% 100 ML IV SCH (15:05)
--- NOTE | 2022-06-15 15:58 | NUR ---
RN NOTE PATIENT ON ROOM AIR O2 SAT 81. I PUT PATIENT BACK ON NC 2 LITERS. TRADE MARK EXAMINER NOTIFIED THAT PATIENT NEEDS OXYGEN AT HOME BEFORE DISCHARGE.
[2022-06-15 16:00] VITALS: BP 126/66
[2022-06-15] MEDS: CEFTRIAXONE 1 G in IV D5W 50 ML IV SCH (17:47)
--- NOTE | 2022-06-15 18:54 | NUR ---
RN CLOSING NOTES PATIENT SLEEPING IN BED, ABUSABLE TO TOUCH AND VOICE, FAROESE SPEAKING ONLY, ON NC 2L TOLERATING WELL, NO SOB NOTED, RESPIRATION EVEN AND UNLABORED. DENIES ANY PAIN. NOTED WITH FRANCISCO MIDLINE PATENT AND INTACT FLUSHES WELL, ON IV FLUIDS RUNNING ORDERED. ON TELE MONITOR WITH SR HR 76. CALL LIGHT WITHIN REACH. BED IN LOWEST POSITION. BED ALARM ON. ALL DUE MEDS GIVEN, KEPT DRY AND CLEAN, WILL ENDORSE TO THE DAMAGE INSIDE ADJUSTER NURSE FOR CONTINUITY OF CARE.
[2022-06-15 19:26] LABS: BAND % (MANUAL) 2 % (0.0-5.0); LYMPHOCYTES % (MANUAL) 6 % (16-48); MONOCYTES % (MANUAL) 12 % (0-11.0); NEUTROPHILS % (MANUAL) 80 (42-76)
--- NOTE | 2022-06-15 19:30 | NUR ---
PATIENT SLEEPING IN BED, EASILY AWAKEN TO TOUCH AND VOICE, A/O X4, ESTONIAN SPEAKING, ON O2 VIA NC AT 2LPM. TOLERATING WELL, NO SOB NOTED, WITH FRANCISCO MIDLINE INFUSING D5NS AT 50ML/HR. ON TELE MONITOR. SAFETY MEASURES IN PLACE. WILL CONTINUE PLAN OF CARE.
[2022-06-15 20:00] VITALS: BP 123/58
[2022-06-16] VITALS: BP 131/62
[2022-06-16] MEDS: IV D5/ 0.9% NACL 1,000 ML IV PRN (00:16)
[2022-06-16] MEDS: ACETAMINOPHEN 325 MG TABLET PO PRN ×2 (00:28→14:45)
[2022-06-16 04:00] VITALS: BP 139/75
[2022-06-16] MEDS: IPRATROPIUM/ALBUTEROL INHALER IH SCH ×2 (05:04→12:13)
--- NOTE | 2022-06-16 06:30 | NUR ---
PATIENT SLEEPING IN BED, EASILY AWAKEN TO TOUCH AND VOICE, A/O X3, MALTESE SPEAKING, ON O2 VIA NC AT 2LPM. TOLERATING WELL, NO SOB NOTED, WITH FRANCISCO MIDLINE INFUSING D5NS AT 50ML/HR. ON TELE MONITOR. DUE MEDS AND PRN MEDS GIVEN NEEEDED AND ORDERED. NEEDS ATTENDED. SAFETY MEASURES MAINTAINED. WILL ENDORSE TO NEXT NURSE ON DUTY FOR CONTINUITY OF CARE.
[2022-06-16 07:05] LABS: BASOPHILS % (AUTO) 0.1 % (0.0-2.0); EOSINOPHILS % (AUTO) 0.1 % (0.0-6.0); HEMATOCRIT 25 % (33-45); HEMOGLOBIN 8.2 g/dL (11.5-14.8); LYMPHOCYTES # (AUTO) 0.2 K/uL (0.8-4.8); LYMPHOCYTES % (AUTO) 4.3 % (20.0-44.0); MEAN CORPUSCULAR HGB CONC 33 g/dl (31.0-36.0); MEAN CORPUSCULAR VOLUME 109 fL (82-100); MONOCYTES # (AUTO) 0.6 K/uL (0.1-1.30); MONOCYTES % (AUTO) 13.9 % (2.0-12.0); NEUTROPHILS # (AUTO) 3.5 K/uL (1.8-8.9); NEUTROPHILS % (AUTO) 81.6 % (43.0-81.0); PLATELET COUNT (AUTO) 389 K/uL (150-450); RED BLOOD CELL COUNT(AUTO) 2.28 MIL/uL (4.0-5.2); WHITE BLOOD COUNT (AUTO) 4.3 K/uL (4.3-11.0)
[2022-06-16 07:31] LABS: ALBUMIN 2.5 g/dL (3.4-5.0); BILIRUBIN,DIRECT 0.1 mg/dL (0.0-0.2); BILIRUBIN,TOTAL 0.3 mg/dL (0.2-1.0); CREATININE 0.9 mg/dL (0.6-1.3); POTASSIUM 3.7 mmol/L (3.5-5.1); TOTAL PROTEIN, SERUM 5.6 g/dL (6.4-8.2)
[2022-06-16 08:00] VITALS: BP 111/60
[2022-06-16] MEDS: ENSURE ENLIVE CHOC 237 ML CAN PO SCH ×2 (08:35→12:13)
[2022-06-16] MEDS: FERROUS SULFATE (325 MG) 325 MG/TAB TABLET PO SCH (08:41)
[2022-06-16] MEDS: DEXAMETHASONE SOD PHOSPHATE 10 MG/ML VIAL IV SCH (08:41)
[2022-06-16] MEDS: HEPARIN SODIUM, PORCINE 5000 UNITS/1 ML VIAL SQ SCH (08:46)
[2022-06-16] MEDS ORDERED: DEXA4TAB PO (11:29)
[2022-06-16] MEDS ORDERED: DOCU-141 PO (11:29)
[2022-06-16] MEDS ORDERED: FERR325T28 PO (11:29)
[2022-06-16 12:00] VITALS: BP 118/53
--- NOTE | 2022-06-16 14:30 | NUR ---
BOAT FUELER NOTE PATIENT STABLE UPON DISCHARGE, PATIENT'S DAUGHTER JUAN ANTONIO CAME AFTER HER MOM. PATIENT TAKEN HOME WITH DAUGHTERS CAR. PATIENT WILL HAVE OXYGEN AT HOME. HOME MEDICATION TAKEN FROM PHARMACY GIVEN TO PATIENT'S DAUGHTER. BELONGING LIST SIGNED BY PATIENT'S DAUGHTER AND PLACED IN THE CHART. ALL DISCHARGE INSTRUCTIONS GIVEN TO THE DAUGHTER. INSTRUCTED ON THE NEW PO MEDICATIONS. MIDLINE REMOVED BEFORE DISCHARGE PATIENT HAD NO IV MEDICATION AT HOME.
[2022-06-16 22:30] LABS: LYMPHOCYTES % (MANUAL) 12 % (16-48); MONOCYTES % (MANUAL) 8 % (0-11.0)
[2022-06-16 22:36] LABS: NEUTROPHILS % (MANUAL) 80 (42-76)
== END 2022-06-16 14:55 | disposition home health service (06) | DRG 177 ==
LOC: ER 13:13 → ICU 16:19 → TELE1 06-11 14:24
PROVIDERS: ADMIT Internal Medicine; ATTEND Internal Medicine
PROC: XW033E5 Introduction of Remdesivir Anti-infective into Peripheral Vein, Percutaneous Approach, New Technology Group 5 (ICD-10-PCS; principal; 2022-06-10)
PROC: 05H633Z Insertion of Infusion Device into Left Subclavian Vein, Percutaneous Approach (ICD-10-PCS; 2022-06-11)
PROC: B547ZZA Ultrasonography of Left Subclavian Vein, Guidance (ICD-10-PCS; 2022-06-11)
DX: U07.1 COVID-19 (principal); J12.82 Pneumonia due to coronavirus disease 2019; J96.01 Acute respiratory failure with hypoxia; N17.0 Acute kidney failure with tubular necrosis; J15.6 Pneumonia due to other Gram-negative bacteria; D47.1 Chronic myeloproliferative disease; C95.90 Leukemia, unspecified not having achieved remission; E87.1 Hypo-osmolality and hyponatremia; E44.0 Moderate protein-calorie malnutrition; J98.11 Atelectasis; D53.9 Nutritional anemia, unspecified; E88.09 Other disorders of plasma-protein metabolism, not elsewhere classified; F03.90 Unspecified dementia, unspecified severity, without behavioral disturbance, psychotic disturbance, mood disturbance, and anxiety; E86.0 Dehydration; F09 Unspecified mental disorder due to known physiological condition; E83.42 Hypomagnesemia
CPT/HCPCS: 36415; 71045-TC; 80048-TC; 80076-TC; 82272-TC; 82607-TC; 82728-TC; 82784; 83540-TC; 83605-TC; 83735-TC; 83880; 84100-TC; 84155; 84165; 84443-TC; 84484-TC; 85025-TC; 85027-TC; 85378-TC; 85396; 85610-TC; 85730-TC; 86140-TC; 86225; 86235; 86334; 86431-TC; 86706; 86803; 87040-TC; 87081-TC; 87086-TC; 87340; A4216; C9803; G0378; J0692; J0696; J1100; J1644; J2405; J3370; J7030; J7042; J7050; J7060

== ENCOUNTER 2023-08-12 19:59 | Inpatient (IN) | payer MEDICARE, OTHER ==
[~2023-08-12] VITALS: Ht 162.6 cm; Wt 42.2 kg
[~2023-08-12 19:59] MED LIST: ACET-73 PO; AMLO-213 PO; APRAZOLAM PO; ASA; BENZ200C53 PO; CHOL400T15 PO; DEXA4TAB PO; DOCU-141 PO; ESOM40CA PO; FERR325T28 PO; FURO40TA5 PO; HYDR500C2 PO; LORA-259 PO; LOSA50TA39 PO; METO25TA6 PO; ONDA4TAB5 PO; QUET50TA PO; SERT25TA PO; SUMA100T16 PO; VIT C PO; [UNRECOGNIZED DRUG - OTHER] PO
[2023-08-12 21:27] LABS: BASOPHILS % (AUTO) 0.2 % (0.0-2.0); EOSINOPHILS % (AUTO) 0.3 % (0.0-6.0); HEMATOCRIT 27 % (33-45); HEMOGLOBIN 8.7 g/dL (11.5-14.8); LYMPHOCYTES # (AUTO) 0.5 K/uL (0.8-4.8); LYMPHOCYTES % (AUTO) 5.4 % (20.0-44.0); MEAN CORPUSCULAR HEMOGLOBIN 34 PG (26.0-33.0); MEAN CORPUSCULAR HGB CONC 32 g/dl (31.0-36.0); MEAN CORPUSCULAR VOLUME 106 fL (82-100); MONOCYTES # (AUTO) 0.6 K/uL (0.1-1.30); MONOCYTES % (AUTO) 7.1 % (2.0-12.0); NEUTROPHILS # (AUTO) 7.8 K/uL (1.8-8.9); PLATELET COUNT (AUTO) 304 K/uL (150-450); RED BLOOD CELL COUNT(AUTO) 2.55 MIL/uL (4.0-5.2); RED CELL DISTRIBUTION WIDTH 17.9 % (11.5-15.0)
[2023-08-12] MEDS ORDERED: ONDANSETRON HCL/PF 4 MG/2 ML VIAL ONE (21:36)
[2023-08-12 21:41] LABS: ALANINE AMINOTRANSFERASE 31 U/L (12-78); ALBUMIN 3.2 g/dL (3.4-5.0); ALKALINE PHOSPHATASE 220 U/L (46-116); ASPARTATE AMINOTRANSFERASE 21 U/L (15-37); BILIRUBIN,DIRECT 0.1 mg/dL (0.0-0.2); BILIRUBIN,TOTAL 0.4 mg/dL (0.2-1.0); CALCIUM, SERUM 8.9 mg/dL (8.5-10.1); CARBON DIOXIDE 22 mmol/L (21-32); CHLORIDE 105 mmol/L (98-107); CREATININE 1.3 mg/dL (0.6-1.3); GLUCOSE 102 mg/dL (74-106); POTASSIUM 3.7 mmol/L (3.5-5.1); SODIUM SERUM 138 mmol/L (136-145); TOTAL PROTEIN, SERUM 7.7 g/dL (6.4-8.2); UREA NITROGEN, BLOOD 23 mg/dL (7-18)
[2023-08-12] MEDS: IV NS 0.9% 1,000 ML BAG IV ONE (21:45)
[2023-08-12] MEDS: ONDANSETRON HCL/PF - ER 4 MG/2 ML VIAL IV ONE (21:45)
[2023-08-12 21:52] LABS: PROTHROMBIN TIME 10.3 SECS (9.2-11.1)
[2023-08-12] MEDS: ONDANSETRON 4 MG TAB.RAPDIS PO ONE (21:52)
[2023-08-12 22:04] LABS: PARTIAL THROMBOPLASTIN TIME 37.2 SEC (24.3-34.3)
[2023-08-12 22:34] LABS: ANISOCYTOSIS 1+; LYMPHOCYTES % (MANUAL) 7 % (16-48); MONOCYTES % (MANUAL) 2 % (0-11.0); NEUTROPHILS % (MANUAL) 91 (42-76); PLATELET ESTIMATE ADEQUATE
[2023-08-12 22:35] LABS: OVALOCYTES 1+
[2023-08-12 22:36] LABS: APPEARANCE,URINE CLEAR (CLEAR); BILIRUBIN,URINE NEGATIVE (NEGATIVE); BLOOD, URINE NEGATIVE Ery/uL (NEGATIVE); COLOR,URINE YELLOW (YELLOW); KETONES,URINE NEGATIVE (NEGATIVE); LEUKOCYTE ESTERASE ,URINE TRACE (NEGATIVE); NITRITE, URINE NEGATIVE (NEGATIVE); PROTEIN,URINE 1+ mg/dl (NEGATIVE); UGLUCOSE NEGATIVE (NEGATIVE); UROBILINOGEN,URINE 0.2 EU/dL (0.2)
[2023-08-12 23:16] LABS: ADD URINE CULTURE YES; BACTERIA,URINE Moderate /HPF (None Seen); RBC,URINE NONE SEEN /HPF (0-2)
[2023-08-12] MEDS: ENOXAPARIN SODIUM 30 MG/0.3 ML DISP.SYRIN SQ SCH (23:45)
[2023-08-12] MEDS ORDERED: ALPRAZOLAM 0.25 MG TABLET ONE (23:51)
[2023-08-13] MEDS ORDERED: Z GUARD REMEDY 4 OZ OINT TP PRN
[2023-08-13] MEDS ORDERED: ZOLPIDEM TARTRATE 5 MG TABLET PO PRN
[2023-08-13] MEDS ORDERED: MAGNESIUM HYDROXIDE 30 ML UDC PO PRN
[2023-08-13] MEDS: ALPRAZOLAM 0.25 MG TABLET PO ONE ×2 (00:01→13:09)
[2023-08-13] MEDS: CEFTRIAXONE 1 G in IV D5W 50 ML IV SCH (00:30)
[2023-08-13] MEDS ORDERED: CEFTRIAXONE 1GM BAG (ER ONLY) 50 ML IV ONE (00:40)
[2023-08-13] MEDS ORDERED: ENOXAPARIN SODIUM 30 MG/0.3 ML DISP.SYRIN ONE (00:47)
[2023-08-13 07:33] LABS: BASOPHILS # (AUTO) 0.1 K/uL (0.0-0.2); EOSINOPHILS # (AUTO) 0.1 K/uL (0.0-0.7); EOSINOPHILS % (AUTO) 0.5 % (0.0-6.0); HEMATOCRIT 27 % (33-45); HEMOGLOBIN 8.5 g/dL (11.5-14.8); LYMPHOCYTES # (AUTO) 0.3 K/uL (0.8-4.8); MEAN CORPUSCULAR HEMOGLOBIN 35 PG (26.0-33.0); MEAN CORPUSCULAR HGB CONC 31 g/dl (31.0-36.0); MEAN CORPUSCULAR VOLUME 112 fL (82-100); MONOCYTES # (AUTO) 0.7 K/uL (0.1-1.30); MONOCYTES % (AUTO) 6.5 % (2.0-12.0); NEUTROPHILS # (AUTO) 9.9 K/uL (1.8-8.9); PLATELET COUNT (AUTO) 303 K/uL (150-450); RED BLOOD CELL COUNT(AUTO) 2.43 MIL/uL (4.0-5.2); RED CELL DISTRIBUTION WIDTH 18.4 % (11.5-15.0); WHITE BLOOD COUNT (AUTO) 11.1 K/uL (4.3-11.0)
[2023-08-13 08:36] LABS: CALCIUM, SERUM 8.7 mg/dL (8.5-10.1); CARBON DIOXIDE 21 mmol/L (21-32); CHLORIDE 107 mmol/L (98-107); GLUCOSE 93 mg/dL (74-106); MAGNESIUM 1.9 mg/dL (1.8-2.4); PHOSPHORUS 2.8 mg/dL (2.5-4.9); POTASSIUM 3.8 mmol/L (3.5-5.1); SODIUM SERUM 142 mmol/L (136-145); UREA NITROGEN, BLOOD 17 mg/dL (7-18)
[2023-08-13 09:00] VITALS: BP 143/73; TEMP 99; O2SAT 97
[2023-08-13] MEDS: PANTOPRAZOLE 40 MG VIAL IV SCH (10:51)
[2023-08-13] MEDS ORDERED: ASCO-495 PO (11:15)
[2023-08-13] MEDS ORDERED: QUET100T PO (11:15)
[2023-08-13] MEDS ORDERED: FOLI0.8T23 PO (11:15)
[2023-08-13] MEDS ORDERED: PROP80TA4 PO (11:15)
[2023-08-13] MEDS ORDERED: MEGE20TA3 PO (11:15)
[2023-08-13] MEDS ORDERED: OMEP40CA21 PO (11:15)
[2023-08-13] MEDS ORDERED: SUCR1TAB PO (11:15)
[2023-08-13] MEDS ORDERED: ALPR0.255 PO (11:15)
[2023-08-13] MEDS ORDERED: METO25TA4 PO (11:15)
[2023-08-13] MEDS ORDERED: SUMA25TA10 PO (11:15)
[2023-08-13] MEDS ORDERED: SENN-261 PO (11:15)
[2023-08-13] MEDS ORDERED: CALC-903 PO (11:15)
[2023-08-13] MEDS ORDERED: EZET10TA32 PO (11:15)
[2023-08-13] MEDS ORDERED: CHOL100043 PO (11:15)
[2023-08-13] MEDS ORDERED: ASPI-1420 PO (11:15)
[2023-08-13] MEDS: MAGNESIUM HYDROXIDE 30 ML UDC PO PRN (13:09)
[2023-08-13] MEDS ORDERED: ONDANSETRON 4 MG TAB.RAPDIS PO PRN (14:00)
[2023-08-13 16:00] VITALS: BP 130/60; TEMP 99.7; O2SAT 95
[2023-08-13] MEDS ORDERED: Medication Not On Formulary EA (Omeprazole 40 MG) PO SCH (17:00)
[2023-08-13] MEDS: SUCRALFATE 1 G TABLET PO SCH (17:23)
[2023-08-13] MEDS: SENNOSIDES 8.6 MG TABLET PO SCH (17:23)
[2023-08-13 20:00] VITALS: BP 131/69; TEMP 98.8; O2SAT 94
[2023-08-13] MEDS: ALPRAZOLAM 0.25 MG TABLET PO SCH (21:15)
[2023-08-14 07:00] VITALS: BP 122/77; TEMP 98.8; O2SAT 97
[2023-08-14] MEDS: ASPIRIN EC 81 MG TABLET.DR PO SCH (09:16)
[2023-08-14] MEDS: HYDROXYUREA 500 MG CAPSULE PO SCH (09:17)
[2023-08-14] MEDS: AMLODIPINE BESYLATE 10 MG TABLET PO SCH (09:17)
[2023-08-14] MEDS: METOPROLOL SUCCINATE 25 MG TAB.SR.24H PO SCH (09:18)
[2023-08-14] MEDS: MEGESTROL ACETATE 40 MG TABLET PO SCH (09:18)
[2023-08-14] MEDS: SERTRALINE HCL 25 MG TABLET PO SCH (09:18)
[2023-08-14] MEDS: LOSARTAN POTASSIUM 50 MG TABLET PO SCH (09:19)
[2023-08-14] MEDS: EZETIMIBE 10 MG TABLET PO SCH (09:21)
[2023-08-14] MEDS: NEOMY SULF/BACITRAC ZN/POLY 15 GM TUBE TP SCH (11:54)
[2023-08-14 12:24] LABS: BILIRUBIN,TOTAL 0.4 mg/dL (0.2-1.0); CALCIUM, SERUM 8.9 mg/dL (8.5-10.1); CREATININE 1.3 mg/dL (0.6-1.3); TOTAL PROTEIN, SERUM 7.3 g/dL (6.4-8.2)
[2023-08-14 12:47] LABS: BASOPHILS % (AUTO) 0.3 % (0.0-2.0); EOSINOPHILS # (AUTO) 0.1 K/uL (0.0-0.7); EOSINOPHILS % (AUTO) 0.6 % (0.0-6.0); HEMATOCRIT 27 % (33-45); HEMOGLOBIN 8.6 g/dL (11.5-14.8); LYMPHOCYTES # (AUTO) 0.3 K/uL (0.8-4.8); LYMPHOCYTES % (AUTO) 2.8 % (20.0-44.0); MEAN CORPUSCULAR HEMOGLOBIN 35 PG (26.0-33.0); MEAN CORPUSCULAR HGB CONC 32 g/dl (31.0-36.0); MEAN CORPUSCULAR VOLUME 108 fL (82-100); MONOCYTES % (AUTO) 8.5 % (2.0-12.0); NEUTROPHILS # (AUTO) 9.9 K/uL (1.8-8.9); NEUTROPHILS % (AUTO) 87.8 % (43.0-81.0); PLATELET COUNT (AUTO) 371 K/uL (150-450); RED CELL DISTRIBUTION WIDTH 18.2 % (11.5-15.0); WHITE BLOOD COUNT (AUTO) 11.2 K/uL (4.3-11.0)
[2023-08-14 16:00] VITALS: BP 110/54; TEMP 97.7; O2SAT 97
[2023-08-14] MEDS: ACETAMINOPHEN 325 MG TABLET PO PRN (16:19)
[2023-08-14] MEDS: ENSURE ENLIVE CHOC 237 ML CAN PO SCH (17:13)
[2023-08-14 18:13] LABS: ANISOCYTOSIS 1+; LYMPHOCYTES % (MANUAL) 7 % (16-48); MONOCYTES % (MANUAL) 5 % (0-11.0); NEUTROPHILS % (MANUAL) 88 (42-76)
[2023-08-14 18:14] LABS: OVALOCYTES 1+; PLATELET ESTIMATE ADEQU; TEAR DROP CELLS 1+
[2023-08-14 20:00] VITALS: BP 104/54; TEMP 99.5; O2SAT 95
[2023-08-14] MEDS ORDERED: SUMATRIPTAN SUCCINATE 25 MG TABLET ONE (23:58)
[2023-08-15] MEDS: SUMATRIPTAN SUCCINATE 25 MG TABLET PO PRN (00:34)
[2023-08-15] MEDS: PANTOPRAZOLE 40 MG/PACK PACK PO SCH (08:27)
[2023-08-15] MEDS: QUETIAPINE FUMARATE 100 MG TABLET PO PRN (11:24)
[2023-08-16 07:16] LABS: CALCIUM, SERUM 8.2 mg/dL (8.5-10.1); CREATININE 1.3 mg/dL (0.6-1.3)
[2023-08-16 07:29] LABS: BASOPHILS % (AUTO) 0.2 % (0.0-2.0); EOSINOPHILS # (AUTO) 0.1 K/uL (0.0-0.7); EOSINOPHILS % (AUTO) 1.3 % (0.0-6.0); HEMATOCRIT 21 % (33-45); LYMPHOCYTES # (AUTO) 0.2 K/uL (0.8-4.8); LYMPHOCYTES % (AUTO) 3.3 % (20.0-44.0); MEAN CORPUSCULAR HEMOGLOBIN 35 PG (26.0-33.0); MEAN CORPUSCULAR HGB CONC 32 g/dl (31.0-36.0); MEAN CORPUSCULAR VOLUME 110 fL (82-100); MONOCYTES # (AUTO) 0.4 K/uL (0.1-1.30); MONOCYTES % (AUTO) 5.6 % (2.0-12.0); NEUTROPHILS # (AUTO) 5.8 K/uL (1.8-8.9); NEUTROPHILS % (AUTO) 89.6 % (43.0-81.0); PLATELET COUNT (AUTO) 216 K/uL (150-450); RED CELL DISTRIBUTION WIDTH 18.1 % (11.5-15.0); WHITE BLOOD COUNT (AUTO) 6.5 K/uL (4.3-11.0)
[2023-08-16 07:57] LABS: HEMOGLOBIN 6.7 g/dL (11.5-14.8)
[2023-08-16] MEDS: ONDANSETRON HCL/PF 4 MG/2 ML VIAL IVP PRN (09:22)
[2023-08-16 11:49] LABS: BASOPHILS % (AUTO) 0.3 % (0.0-2.0); EOSINOPHILS # (AUTO) 0.1 K/uL (0.0-0.7); EOSINOPHILS % (AUTO) 1.4 % (0.0-6.0); HEMATOCRIT 22 % (33-45); LYMPHOCYTES # (AUTO) 0.2 K/uL (0.8-4.8); LYMPHOCYTES % (AUTO) 2.6 % (20.0-44.0); MEAN CORPUSCULAR HEMOGLOBIN 35 PG (26.0-33.0); MEAN CORPUSCULAR HGB CONC 32 g/dl (31.0-36.0); MEAN CORPUSCULAR VOLUME 109 fL (82-100); MONOCYTES # (AUTO) 0.4 K/uL (0.1-1.30); NEUTROPHILS # (AUTO) 5.6 K/uL (1.8-8.9); NEUTROPHILS % (AUTO) 89.7 % (43.0-81.0); PLATELET COUNT (AUTO) 205 K/uL (150-450); WHITE BLOOD COUNT (AUTO) 6.3 K/uL (4.3-11.0)
[2023-08-16 12:21] LABS: ANISOCYTOSIS 1+; BASOPHILS % (MANUAL) 0 % (0.0-2.0); EOSINOPHILS % (MANUAL) 1 % (0-4); HYPOCHROMASIA 1+; LYMPHOCYTES % (MANUAL) 6 % (16-48); MONOCYTES % (MANUAL) 7 % (0-11.0); NEUTROPHILS % (MANUAL) 86 (42-76); OVALOCYTES 1+; PLATELET ESTIMATE ADEQUATE; TEAR DROP CELLS 1+
[2023-08-16] MEDS ORDERED: diphenhydrAMINE HCL 50 MG/ML VIAL IV ONE (17:30)
[2023-08-16] MEDS ORDERED: ACETAMINOPHEN 325 MG TABLET PO ONE (17:30)
[2023-08-16 19:01] LABS: HEMOGLOBIN 7.2 g/dL (11.5-14.8)
[2023-08-16 19:34] LABS: THYROID STIMULATING HORMONE 1.245 uIU/mL (0.358-3.74)
[2023-08-16 20:00] VITALS: BP 119/52; TEMP 97.7; O2SAT 97
[2023-08-16] MEDS: MAG HYDROX/AL HYDROX/SIMETH 30 ML UDC PO PRN (21:43)
[2023-08-17] VITALS (7 sets, daily range): BP systolic 98–117; BP diastolic 50–65; TEMP 98.8–99.5; O2SAT 95–99
[2023-08-17 07:19] LABS: CALCIUM, SERUM 8.2 mg/dL (8.5-10.1); CARBON DIOXIDE 26 mmol/L (21-32); CHLORIDE 107 mmol/L (98-107); CREATININE 1.1 mg/dL (0.6-1.3); GLUCOSE 82 mg/dL (74-106); POTASSIUM 4.3 mmol/L (3.5-5.1); SODIUM SERUM 140 mmol/L (136-145); UREA NITROGEN, BLOOD 27 mg/dL (7-18)
[2023-08-17 07:58] LABS: BASOPHILS % (AUTO) 0.4 % (0.0-2.0); EOSINOPHILS # (AUTO) 0.1 K/uL (0.0-0.7); HEMATOCRIT 21 % (33-45); LYMPHOCYTES # (AUTO) 0.3 K/uL (0.8-4.8); LYMPHOCYTES % (AUTO) 4.6 % (20.0-44.0); MEAN CORPUSCULAR HEMOGLOBIN 35 PG (26.0-33.0); MEAN CORPUSCULAR HGB CONC 33 g/dl (31.0-36.0); MEAN CORPUSCULAR VOLUME 107 fL (82-100); MONOCYTES # (AUTO) 0.5 K/uL (0.1-1.30); MONOCYTES % (AUTO) 7.2 % (2.0-12.0); NEUTROPHILS # (AUTO) 6.4 K/uL (1.8-8.9); NEUTROPHILS % (AUTO) 85.8 % (43.0-81.0); PLATELET COUNT (AUTO) 239 K/uL (150-450); RED CELL DISTRIBUTION WIDTH 17.7 % (11.5-15.0); WHITE BLOOD COUNT (AUTO) 7.4 K/uL (4.3-11.0)
[2023-08-17 08:03] LABS: RED BLOOD CELL COUNT(AUTO) 1.97 MIL/uL (4.0-5.2)
[2023-08-17 08:05] LABS: HEMOGLOBIN 6.9 g/dL (11.5-14.8)
[2023-08-17 08:06] LABS: IMMUNOGLOBULIN A, SERUM 310 mg/dL (64-422); IMMUNOGLOBULIN G, SERUM 854 mg/dL (586-1602); IMMUNOGLOBULIN M, SERUM 54 mg/dL (26-217)
[2023-08-17 09:21] LABS: OCCULT BLOOD STOOL NEGATIVE (NEGATIVE)
[2023-08-17 10:58] LABS: ANISOCYTOSIS 1+; BASOPHILS % (MANUAL) 0 % (0.0-2.0); EOSINOPHILS % (MANUAL) 4 % (0-4); HYPOCHROMASIA 1+; LYMPHOCYTES % (MANUAL) 6 % (16-48); MONOCYTES % (MANUAL) 9 % (0-11.0); NEUTROPHILS % (MANUAL) 81 (42-76); PLATELET ESTIMATE ADEQUATE
[2023-08-17 10:59] LABS: OVALOCYTES 1+
[2023-08-17] MEDS: ACETAMINOPHEN 325 MG TABLET PO ONE (11:58)
[2023-08-17] MEDS: diphenhydrAMINE HCL 50 MG/ML VIAL IV ONE (11:58)
[2023-08-17] MEDS: SOD FERRIC GLUC 125 MG in IV NS 0.9% 100 ML IV SCH (18:20)
[2023-08-17 21:58] LABS: HEMOGLOBIN 8.3 g/dL (11.5-14.8)
[2023-08-18 00:06] LABS: FOLIC ACID > 20.0 ng/mL (>3.0)
[2023-08-18 02:10] LABS: FREE KAPPA LT CHAINS SERUM 78.5 mg/L (3.3-19.4); FREE LAMBDA LT CHAIN SERUM 33.3 mg/L (5.7-26.3); KAPPA/LAMBDA RATIO SERUM 2.36 (0.26-1.65)
[2023-08-18 08:00] VITALS: BP 130/74; TEMP 98.2; O2SAT 99
[2023-08-18 08:07] LABS: *SPE ALPHA-1-GLOBULIN 0.3 g/dL (0.0-0.4); *SPE BETA GLOBULIN 0.9 g/dL (0.7-1.3); *SPE M-SPIKE Not Observed g/dL (Not Observed); *SPEGAMMA GLOBULIN 0.9 g/dL (0.4-1.8)
[2023-08-18 11:26] LABS: HEMOGLOBIN 8.9 g/dL (11.5-14.8)
[2023-08-18] MEDS: diphenhydrAMINE HCL 50 MG/ML VIAL IV ONE (16:02)
[2023-08-18] MEDS: METOCLOPRAMIDE HCL 10 MG/2 ML VIAL IV ONE (16:02)
[2023-08-18 21:00] VITALS: BP 115/60; TEMP 99; O2SAT 95
[2023-08-18] MEDS: POLYETHYLENE GLYCOL 3350 17 GM POWD.PACK PO SCH (21:30)
[2023-08-19 07:01] LABS: BASOPHILS # (AUTO) 0.1 K/uL (0.0-0.2); BASOPHILS % (AUTO) 0.9 % (0.0-2.0); EOSINOPHILS # (AUTO) 0.2 K/uL (0.0-0.7); EOSINOPHILS % (AUTO) 1.9 % (0.0-6.0); HEMATOCRIT 27 % (33-45); LYMPHOCYTES # (AUTO) 0.6 K/uL (0.8-4.8); LYMPHOCYTES % (AUTO) 7.6 % (20.0-44.0); MEAN CORPUSCULAR HEMOGLOBIN 35 PG (26.0-33.0); MEAN CORPUSCULAR HGB CONC 34 g/dl (31.0-36.0); MEAN CORPUSCULAR VOLUME 103 fL (82-100); MONOCYTES # (AUTO) 0.8 K/uL (0.1-1.30); MONOCYTES % (AUTO) 10.4 % (2.0-12.0); NEUTROPHILS # (AUTO) 6.4 K/uL (1.8-8.9); NEUTROPHILS % (AUTO) 79.2 % (43.0-81.0); PLATELET COUNT (AUTO) 282 K/uL (150-450); RED BLOOD CELL COUNT(AUTO) 2.59 MIL/uL (4.0-5.2); RED CELL DISTRIBUTION WIDTH 20.7 % (11.5-15.0); WHITE BLOOD COUNT (AUTO) 8.1 K/uL (4.3-11.0)
[2023-08-19 07:03] LABS: CALCIUM, SERUM 8.8 mg/dL (8.5-10.1); CREATININE 1.1 mg/dL (0.6-1.3); MAGNESIUM 2.1 mg/dL (1.8-2.4); PHOSPHORUS 3.2 mg/dL (2.5-4.9)
[2023-08-19 08:00] VITALS: BP 117/57; TEMP 99; O2SAT 94
[2023-08-19] MEDS: PSYLLIUM SEED 1 PKT PACKET PO SCH (09:32)
[2023-08-19 09:34] VITALS: BP 117/57
[2023-08-19] MEDS ORDERED: POLY17PO4 PO (12:04)
[2023-08-19] MEDS ORDERED: PSYL3.4P6 PO (12:04)
[2023-08-19] MEDS ORDERED: FERR325T23 PO (12:04)
[2023-08-21 01:09] LABS: CANCER AG, 15-3 39.7 U/mL (0.0-25.0)
== END 2023-08-19 16:00 | disposition home or self-care (01) | DRG 811 ==
LOC: ER 20:03 → TRANSITION 08-13 05:36 → TELE 08-13 07:36 → MED 08-13 20:00
PROVIDERS: ADMIT Nurse Practitioner Acute Care; ATTEND Nurse Practitioner Family
PROC: 30233N1 Transfusion of Nonautologous Red Blood Cells into Peripheral Vein, Percutaneous Approach (ICD-10-PCS; principal; 2023-08-16)
DX: D53.9 Nutritional anemia, unspecified (principal); G93.41 Metabolic encephalopathy; N39.0 Urinary tract infection, site not specified; C95.90 Leukemia, unspecified not having achieved remission; N17.9 Acute kidney failure, unspecified; G43.909 Migraine, unspecified, not intractable, without status migrainosus; F03.90 Unspecified dementia, unspecified severity, without behavioral disturbance, psychotic disturbance, mood disturbance, and anxiety; I10 Essential (primary) hypertension; Z79.899 Other long term (current) drug therapy; Z86.16 Personal history of COVID-19; B96.89 Other specified bacterial agents as the cause of diseases classified elsewhere; D50.9 Iron deficiency anemia, unspecified; E86.9 Volume depletion, unspecified; E88.09 Other disorders of plasma-protein metabolism, not elsewhere classified; M89.8X9 Other specified disorders of bone, unspecified site; Z86.2 Personal history of diseases of the blood and blood-forming organs and certain disorders involving the immune mechanism; T45.1X5A Adverse effect of antineoplastic and immunosuppressive drugs, initial encounter; Y92.9 Unspecified place or not applicable
CPT/HCPCS: 36415; 70450-TC; 71045-TC; 71250-TC; 76536-TC; 80048-TC; 80053-TC; 80076-TC; 81001; 82232; 82272-TC; 82378; 82607-TC; 82728-TC; 82784; 83540-TC; 83735-TC; 84100-TC; 84155; 84165; 84443-TC; 84484-TC; 84550-TC; 85025-TC; 85027-TC; 85730-TC; 86300; 86334; 86850-TC; 87086-TC; 97110-TC; 97112-TC; 97116-TC; 97530-TC; A4223; C9113; G0378; J0696; J1200; J1650; J2405; J2765; J2916; J7030; J7040; J7050; J7060; P9016

== ENCOUNTER 2024-02-26 12:46 | Inpatient (IN) | payer MEDICARE, OTHER ==
[~2024-02-26] VITALS: Ht 154.9 cm; Wt 41.7 kg
[~2024-02-26 12:46] MED LIST changes: +ALPR0.255 PO; -APRAZOLAM PO; -ASA; +ASCO-495 PO; +ASPI-1420 PO; -BENZ200C53 PO; +CALC-903 PO; +CHOL100043 PO; -CHOL400T15 PO; -DEXA4TAB PO; -DOCU-141 PO; -ESOM40CA PO; +EZET10TA32 PO; +FERR325T23 PO; -FERR325T28 PO; +FOLI0.8T23 PO; -HYDR500C2 PO; -LORA-259 PO; +MEGE20TA3 PO; +METO25TA4 PO; -METO25TA6 PO; +OMEP40CA21 PO; +POLY17PO4 PO; +PROP80TA4 PO; +PSYL3.4P6 PO; +QUET100T PO; -QUET50TA PO; +SENN-261 PO; +SUCR1TAB PO; -SUMA100T16 PO; +SUMA25TA10 PO; -VIT C PO; -[UNRECOGNIZED DRUG - OTHER] PO
[2024-02-26] MEDS: ACETAMINOPHEN 325 MG TABLET PO ONE (14:30)
[2024-02-26] MEDS ORDERED: ACETAMINOPHEN 325 MG TABLET ONE ×2 (14:32→14:33)
[2024-02-26 14:50] LABS: BASOPHILS # (AUTO) 0.3 K/uL (0.0-0.2); BASOPHILS % (AUTO) 0.7 % (0.0-2.0); EOSINOPHILS # (AUTO) 0.6 K/uL (0.0-0.7); EOSINOPHILS % (AUTO) 1.4 % (0.0-6.0); HEMATOCRIT 26 % (33-45); HEMOGLOBIN 7.6 g/dL (11.5-14.8); LYMPHOCYTES # (AUTO) 1.3 K/uL (0.8-4.8); LYMPHOCYTES % (AUTO) 3.1 % (20.0-44.0); MEAN CORPUSCULAR HEMOGLOBIN 28 PG (26.0-33.0); MEAN CORPUSCULAR HGB CONC 29 g/dl (31.0-36.0); MEAN CORPUSCULAR VOLUME 98 fL (82-100); MONOCYTES % (AUTO) 2.4 % (2.0-12.0); NEUTROPHILS # (AUTO) 38.4 K/uL (1.8-8.9); NEUTROPHILS % (AUTO) 92.4 % (43.0-81.0); PLATELET COUNT (AUTO) 314 K/uL (150-450); RED BLOOD CELL COUNT(AUTO) 2.68 MIL/uL (4.0-5.2); RED CELL DISTRIBUTION WIDTH 19.7 % (11.5-15.0)
[2024-02-26 15:00] LABS: WHITE BLOOD COUNT (AUTO) 41.6 K/uL (4.3-11.0)
[2024-02-26 15:09] LABS: CALCIUM, SERUM 8.5 mg/dL (8.5-10.1); CARBON DIOXIDE 22 mmol/L (21-32); CHLORIDE 108 mmol/L (98-107); CREATININE 1.4 mg/dL (0.6-1.3); GLUCOSE 116 mg/dL (74-106); LACTIC ACID 1.9 mmol/L (0.4-2.0); POTASSIUM 3.8 mmol/L (3.5-5.1); SODIUM SERUM 141 mmol/L (136-145); UREA NITROGEN, BLOOD 21 mg/dL (7-18)
[2024-02-26 15:14] LABS: ALANINE AMINOTRANSFERASE 16 U/L (12-78); ALBUMIN 3.1 g/dL (3.4-5.0); ALKALINE PHOSPHATASE 381 U/L (46-116); ASPARTATE AMINOTRANSFERASE 25 U/L (15-37); BILIRUBIN,DIRECT 0.1 mg/dL (0.0-0.2); BILIRUBIN,TOTAL 0.4 mg/dL (0.2-1.0); TOTAL PROTEIN, SERUM 7.3 g/dL (6.4-8.2)
[2024-02-26] MEDS: IV NS 0.9% 250 ML BAG IV ONE (16:00)
[2024-02-26] MEDS ORDERED: PIPERACI/TAZO 3.375GM/D5W 50ML PB IV ONE (16:11)
[2024-02-26] MEDS: PIPERACILLIN /TAZOBACTAM 3.375 G in IV D5W 50 ML IV ONE (16:19)
[2024-02-26 16:33] LABS: BAND % (MANUAL) 1 % (0.0-5.0); EOSINOPHILS % (MANUAL) 1 % (0-4); LYMPHOCYTES % (MANUAL) 6 % (16-48); MONOCYTES % (MANUAL) 4 % (0-11.0); NEUTROPHILS % (MANUAL) 88 (42-76)
[2024-02-26 16:34] LABS: ANISOCYTOSIS 1+; OVALOCYTES 1+; TEAR DROP CELLS RARE
[2024-02-26 16:35] LABS: PLATELET ESTIMATE ADEQU
[2024-02-26 17:16] LABS: APPEARANCE,URINE Clear (CLEAR); BILIRUBIN,URINE Negative (NEGATIVE); BLOOD, URINE Negative Ery/uL (NEGATIVE); COLOR,URINE YELLOW (YELLOW); KETONES,URINE Negative (NEGATIVE); LEUKOCYTE ESTERASE ,URINE Trace (NEGATIVE); NITRITE, URINE Negative (NEGATIVE); PH,URINE 5.5 (5.0-8.0); PROTEIN,URINE 100 mg/dl (NEGATIVE); UGLUCOSE Negative (NEGATIVE); UROBILINOGEN,URINE 0.2 EU/dL (0.2)
[2024-02-26 17:17] LABS: ADD URINE CULTURE NO; BACTERIA,URINE Few /HPF (None Seen); RBC,URINE 0-2 /HPF (0-2); SQUAMOUS EPITHELIAL CELL,UR Few /HPF (None Seen)
[2024-02-26] MEDS ORDERED: hydrALAZINE HCL IV 20 MG VIAL IV PRN (18:30)
[2024-02-26] MEDS ORDERED: FURO40TA5 PO (18:31)
[2024-02-26] MEDS ORDERED: BISA5TAB10 PO (18:31)
[2024-02-26] MEDS ORDERED: METO25TA4 PO (18:31)
[2024-02-26] MEDS ORDERED: HYDR500C2 PO (18:31)
[2024-02-26] MEDS ORDERED: QUET50TA PO (18:31)
[2024-02-26 18:32] VITALS: BP 120/60; TEMP 98.7; O2SAT 96
[2024-02-26] MEDS: IV NS 0.9% 1,000 ML IV SCH (19:17)
[2024-02-26] MEDS: HYDROXYUREA 500 MG CAPSULE PO SCH (19:22)
[2024-02-26 20:00] VITALS: BP 118/60; TEMP 98.6; O2SAT 93
[2024-02-27] VITALS (9 sets, daily range): BP systolic 118–133; BP diastolic 59–73; TEMP 97.5–100; O2SAT 94–96
[2024-02-27] MEDS: ACETAMINOPHEN 325 MG TABLET PO PRN (06:36)
[2024-02-27] MEDS: CEFTRIAXONE 1 G in IV D5W 50 ML IV SCH (07:34)
[2024-02-27] MEDS ORDERED: ALBUTEROL FS 2.5 MG/0.5 ML VIAL.NEB NEB PRN (08:30)
[2024-02-27 08:35] LABS: BASOPHILS # (AUTO) 0.3 K/uL (0.0-0.2); BASOPHILS % (AUTO) 0.9 % (0.0-2.0); EOSINOPHILS # (AUTO) 0.4 K/uL (0.0-0.7); EOSINOPHILS % (AUTO) 1.4 % (0.0-6.0); HEMATOCRIT 23 % (33-45); LYMPHOCYTES # (AUTO) 1.1 K/uL (0.8-4.8); LYMPHOCYTES % (AUTO) 3.5 % (20.0-44.0); MEAN CORPUSCULAR HEMOGLOBIN 29 PG (26.0-33.0); MEAN CORPUSCULAR HGB CONC 30 g/dl (31.0-36.0); MEAN CORPUSCULAR VOLUME 96 fL (82-100); MONOCYTES # (AUTO) 0.7 K/uL (0.1-1.30); MONOCYTES % (AUTO) 2.2 % (2.0-12.0); NEUTROPHILS # (AUTO) 28.2 K/uL (1.8-8.9); PLATELET COUNT (AUTO) 269 K/uL (150-450); RED BLOOD CELL COUNT(AUTO) 2.36 MIL/uL (4.0-5.2); RED CELL DISTRIBUTION WIDTH 19.3 % (11.5-15.0)
[2024-02-27 08:39] LABS: ALANINE AMINOTRANSFERASE 15 U/L (12-78); ALBUMIN 2.6 g/dL (3.4-5.0); ALKALINE PHOSPHATASE 339 U/L (46-116); ASPARTATE AMINOTRANSFERASE 23 U/L (15-37); BILIRUBIN,TOTAL 0.3 mg/dL (0.2-1.0); CARBON DIOXIDE 22 mmol/L (21-32); CHLORIDE 109 mmol/L (98-107); CREATININE 1.2 mg/dL (0.6-1.3); GLUCOSE 73 mg/dL (74-106); MAGNESIUM 1.9 mg/dL (1.8-2.4); PHOSPHORUS 3.6 mg/dL (2.5-4.9); POTASSIUM 3.5 mmol/L (3.5-5.1); SODIUM SERUM 142 mmol/L (136-145); TOTAL PROTEIN, SERUM 6.3 g/dL (6.4-8.2); UREA NITROGEN, BLOOD 19 mg/dL (7-18)
[2024-02-27 09:16] LABS: HEMOGLOBIN 6.8 g/dL (11.5-14.8); WHITE BLOOD COUNT (AUTO) 30.6 K/uL (4.3-11.0)
[2024-02-27 11:31] LABS: ANISOCYTOSIS 1+; BAND % (MANUAL) 1 % (0.0-5.0); LYMPHOCYTES % (MANUAL) 5 % (16-48); MONOCYTES % (MANUAL) 2 % (0-11.0); NEUTROPHILS % (MANUAL) 92 (42-76); PLATELET ESTIMATE ADEQUATE
[2024-02-27 19:23] LABS: HEMOGLOBIN 7.8 g/dL (11.5-14.8)
[2024-02-27] MEDS: AZITHROMYCIN 250 MG TABLET PO SCH (21:54)
[2024-02-28] VITALS: BP 124/71; TEMP 98.1; O2SAT 93
[2024-02-28 04:00] VITALS: BP 120/61; TEMP 99.1; O2SAT 94
[2024-02-28 07:50] LABS: BASOPHILS # (AUTO) 0.2 K/uL (0.0-0.2); BASOPHILS % (AUTO) 0.5 % (0.0-2.0); EOSINOPHILS # (AUTO) 0.4 K/uL (0.0-0.7); EOSINOPHILS % (AUTO) 1.1 % (0.0-6.0); HEMATOCRIT 25 % (33-45); HEMOGLOBIN 7.6 g/dL (11.5-14.8); LYMPHOCYTES # (AUTO) 0.7 K/uL (0.8-4.8); MEAN CORPUSCULAR HEMOGLOBIN 29 PG (26.0-33.0); MEAN CORPUSCULAR HGB CONC 30 g/dl (31.0-36.0); MEAN CORPUSCULAR VOLUME 95 fL (82-100); MONOCYTES # (AUTO) 0.9 K/uL (0.1-1.30); MONOCYTES % (AUTO) 2.4 % (2.0-12.0); NEUTROPHILS # (AUTO) 33.2 K/uL (1.8-8.9); PLATELET COUNT (AUTO) 265 K/uL (150-450); RED BLOOD CELL COUNT(AUTO) 2.64 MIL/uL (4.0-5.2); RED CELL DISTRIBUTION WIDTH 19.5 % (11.5-15.0)
[2024-02-28 07:59] LABS: WHITE BLOOD COUNT (AUTO) 35.3 K/uL (4.3-11.0)
[2024-02-28 08:00] VITALS: BP 126/68; TEMP 99.1; O2SAT 95
[2024-02-28 08:01] LABS: APPEARANCE,URINE CLOUDY (CLEAR); BILIRUBIN,URINE NEGATIVE (NEGATIVE); BLOOD, URINE 3+ Ery/uL (NEGATIVE); COLOR,URINE YELLOW (YELLOW); KETONES,URINE NEGATIVE (NEGATIVE); LEUKOCYTE ESTERASE ,URINE 1+ (NEGATIVE); NITRITE, URINE NEGATIVE (NEGATIVE); PH,URINE 7.5 (5.0-8.0); PROTEIN,URINE TRACE mg/dl (NEGATIVE); UGLUCOSE NEGATIVE (NEGATIVE); UROBILINOGEN,URINE 0.2 EU/dL (0.2)
[2024-02-28 08:05] LABS: ALANINE AMINOTRANSFERASE 12 U/L (12-78); ALBUMIN 2.5 g/dL (3.4-5.0); ALKALINE PHOSPHATASE 333 U/L (46-116); ASPARTATE AMINOTRANSFERASE 21 U/L (15-37); BILIRUBIN,TOTAL 0.4 mg/dL (0.2-1.0); CALCIUM, SERUM 8.1 mg/dL (8.5-10.1); CARBON DIOXIDE 21 mmol/L (21-32); CHLORIDE 112 mmol/L (98-107); GLUCOSE 83 mg/dL (74-106); MAGNESIUM 1.9 mg/dL (1.8-2.4); PHOSPHORUS 3.2 mg/dL (2.5-4.9); POTASSIUM 3.7 mmol/L (3.5-5.1); SODIUM SERUM 144 mmol/L (136-145); TOTAL PROTEIN, SERUM 6.1 g/dL (6.4-8.2); UREA NITROGEN, BLOOD 12 mg/dL (7-18)
[2024-02-28 08:07] LABS: ADD URINE CULTURE YES; BACTERIA,URINE Moderate /HPF (None Seen); RBC,URINE 21-50 /HPF (0-2); SQUAMOUS EPITHELIAL CELL,UR Rare /HPF (None Seen)
[2024-02-28 08:08] LABS: EOSINOPHIL,URINE None Seen
[2024-02-28 08:12] LABS: CREATININE, URINE 33.7 MG/DL (30.0-125.0); URINE TOTAL PROTEIN 50.2 mg/dL (0-11.9)
[2024-02-28 08:16] LABS: CREATINE KINASE, TOTAL 60 U/L (26-192)
[2024-02-28 08:21] LABS: ANISOCYTOSIS 1+; BAND % (MANUAL) 5 % (0.0-5.0); BASOPHILS % (MANUAL) 0 % (0.0-2.0); EOSINOPHILS % (MANUAL) 0 % (0-4); LYMPHOCYTES % (MANUAL) 3 % (16-48); MONOCYTES % (MANUAL) 3 % (0-11.0); NEUTROPHILS % (MANUAL) 89 (42-76); OVALOCYTES 1+; PLATELET ESTIMATE ADEQUATE; TEAR DROP CELLS 1+
[2024-02-28 12:00] VITALS: BP 134/67; TEMP 99.1; O2SAT 96
[2024-02-28] MEDS ORDERED: ALBUTEROL FS 2.5 MG/0.5 ML VIAL.NEB NEB PRN (15:27)
[2024-02-28 16:00] VITALS: BP 116/62; TEMP 98.2; O2SAT 98
[2024-02-28 18:00] LABS: BASOPHILS # (AUTO) 0.2 K/uL (0.0-0.2); BASOPHILS % (AUTO) 0.5 % (0.0-2.0); EOSINOPHILS # (AUTO) 0.3 K/uL (0.0-0.7); EOSINOPHILS % (AUTO) 1.1 % (0.0-6.0); HEMATOCRIT 26 % (33-45); LYMPHOCYTES # (AUTO) 0.6 K/uL (0.8-4.8); MEAN CORPUSCULAR HEMOGLOBIN 29 PG (26.0-33.0); MEAN CORPUSCULAR HGB CONC 31 g/dl (31.0-36.0); MEAN CORPUSCULAR VOLUME 93 fL (82-100); MONOCYTES # (AUTO) 0.6 K/uL (0.1-1.30); MONOCYTES % (AUTO) 2.1 % (2.0-12.0); NEUTROPHILS % (AUTO) 94.3 % (43.0-81.0); PLATELET COUNT (AUTO) 251 K/uL (150-450); RED BLOOD CELL COUNT(AUTO) 2.78 MIL/uL (4.0-5.2); RED CELL DISTRIBUTION WIDTH 19.5 % (11.5-15.0)
[2024-02-28 18:19] LABS: WHITE BLOOD COUNT (AUTO) 30.8 K/uL (4.3-11.0)
[2024-02-28 19:07] LABS: ANISOCYTOSIS 1+; EOSINOPHILS % (MANUAL) 1 % (0-4); LYMPHOCYTES % (MANUAL) 4 % (16-48); MONOCYTES % (MANUAL) 3 % (0-11.0); NEUTROPHILS % (MANUAL) 91 (42-76); REACTIVE LYMPHOCYTES 1 % (0-0)
[2024-02-28 19:08] LABS: OVALOCYTES 1+; PLATELET ESTIMATE ADEQU; TEAR DROP CELLS RARE
[2024-02-28 20:00] VITALS: BP 133/64; TEMP 99; O2SAT 97
[2024-02-29] VITALS: BP 133/67; TEMP 99; O2SAT 97
[2024-02-29 04:00] VITALS: BP 134/87; TEMP 98.9; O2SAT 98
[2024-02-29 06:35] LABS: BASOPHILS # (AUTO) 0.2 K/uL (0.0-0.2); BASOPHILS % (AUTO) 0.9 % (0.0-2.0); EOSINOPHILS # (AUTO) 0.5 K/uL (0.0-0.7); EOSINOPHILS % (AUTO) 1.9 % (0.0-6.0); HEMATOCRIT 24 % (33-45); HEMOGLOBIN 7.6 g/dL (11.5-14.8); LYMPHOCYTES # (AUTO) 0.7 K/uL (0.8-4.8); LYMPHOCYTES % (AUTO) 2.8 % (20.0-44.0); MEAN CORPUSCULAR HEMOGLOBIN 29 PG (26.0-33.0); MEAN CORPUSCULAR HGB CONC 32 g/dl (31.0-36.0); MEAN CORPUSCULAR VOLUME 93 fL (82-100); MONOCYTES # (AUTO) 0.7 K/uL (0.1-1.30); NEUTROPHILS # (AUTO) 22.5 K/uL (1.8-8.9); NEUTROPHILS % (AUTO) 91.4 % (43.0-81.0); PLATELET COUNT (AUTO) 211 K/uL (150-450); RED BLOOD CELL COUNT(AUTO) 2.58 MIL/uL (4.0-5.2); RED CELL DISTRIBUTION WIDTH 19.2 % (11.5-15.0); WHITE BLOOD COUNT (AUTO) 24.6 K/uL (4.3-11.0)
[2024-02-29 06:57] LABS: THYROID STIMULATING HORMONE 3.51 uIU/mL (0.358-3.74)
[2024-02-29 07:04] LABS: CALCIUM, SERUM 7.6 mg/dL (8.5-10.1); CARBON DIOXIDE 21 mmol/L (21-32); CHLORIDE 107 mmol/L (98-107); CREATININE 0.9 mg/dL (0.6-1.3); GLUCOSE 79 mg/dL (74-106); MAGNESIUM 1.8 mg/dL (1.8-2.4); PHOSPHORUS 3.4 mg/dL (2.5-4.9); POTASSIUM 3.5 mmol/L (3.5-5.1); SODIUM SERUM 140 mmol/L (136-145); UREA NITROGEN, BLOOD 13 mg/dL (7-18)
[2024-02-29 07:58] LABS: ANISOCYTOSIS 1+; BAND % (MANUAL) 5 % (0.0-5.0); BASOPHILS % (MANUAL) 0 % (0.0-2.0); EOSINOPHILS % (MANUAL) 0 % (0-4); HYPOCHROMASIA RARE; LYMPHOCYTES % (MANUAL) 4 % (16-48); MONOCYTES % (MANUAL) 4 % (0-11.0); NEUTROPHILS % (MANUAL) 87 (42-76); OVALOCYTES 1+; PLATELET ESTIMATE ADEQUATE; TEAR DROP CELLS 1+
[2024-02-29 08:00] VITALS: BP 131/69; TEMP 97.7; O2SAT 97
[2024-02-29] MEDS: ONDANSETRON HCL/PF 4 MG/2 ML VIAL IVP PRN (09:36)
[2024-02-29 12:00] VITALS: BP 130/70; TEMP 97.7; O2SAT 96
[2024-02-29 16:00] VITALS: BP 129/64; TEMP 97.3; O2SAT 96
[2024-02-29 20:00] VITALS: BP 124/75; TEMP 98.3; O2SAT 95
[2024-03-01] VITALS: BP 130/67; TEMP 98.4; O2SAT 96
[2024-03-01 04:00] VITALS: BP 136/89; TEMP 98.6; O2SAT 95
[2024-03-01 08:00] VITALS: BP 129/61; TEMP 98.6; O2SAT 96
[2024-03-01] MEDS ORDERED: AZIT250T PO (10:22)
[2024-03-01 12:00] VITALS: BP 149/78; TEMP 98; TEMP 98.6; O2SAT 97
[2024-03-01 12:10] LABS: PTH, INTACT 19 pg/mL (15-65)
[2024-03-01 15:12] LABS: *SPE A/G RATIO 0.7 (0.7-1.7); *SPE ALBUMIN 2.3 g/dL (2.9-4.4); *SPE ALPHA-1-GLOBULIN 0.2 g/dL (0.0-0.4); *SPE GLOBULIN, TOTAL 3.4 g/dL (2.2-3.9); *SPE M-SPIKE Not Observed g/dL (Not Observed); *SPE PROTEIN TOTAL 5.7 g/dL (6.0-8.5); *SPEGAMMA GLOBULIN 1.1 g/dL (0.4-1.8)
== END 2024-03-01 14:54 | DRG 689 ==
LOC: ER 12:52 → MEDSG1 17:36 → TELE1 02-27 02:51 → MEDSG1 03-01 10:36
PROVIDERS: ADMIT Internal Medicine; ATTEND Internal Medicine
PROC: 30233N1 Transfusion of Nonautologous Red Blood Cells into Peripheral Vein, Percutaneous Approach (ICD-10-PCS; principal; 2024-02-27)
DX: N39.0 Urinary tract infection, site not specified (principal); N17.0 Acute kidney failure with tubular necrosis; E44.1 Mild protein-calorie malnutrition; D47.1 Chronic myeloproliferative disease; J98.11 Atelectasis; Z68.1 Body mass index [BMI] 19.9 or less, adult; E88.09 Other disorders of plasma-protein metabolism, not elsewhere classified; Z66 Do not resuscitate; Z79.899 Other long term (current) drug therapy; Z60.3 Acculturation difficulty; Z85.6 Personal history of leukemia; D64.9 Anemia, unspecified; B96.20 Unspecified Escherichia coli [E. coli] as the cause of diseases classified elsewhere; R74.8 Abnormal levels of other serum enzymes; F03.90 Unspecified dementia, unspecified severity, without behavioral disturbance, psychotic disturbance, mood disturbance, and anxiety; I10 Essential (primary) hypertension
CPT/HCPCS: 36415; 71045-TC; 80048-TC; 80053-TC; 80076-TC; 81001; 82550-TC; 82570-TC; 82607-TC; 82728-TC; 82962-TC; 83540-TC; 83605-TC; 83735-TC; 83970; 84100-TC; 84155; 84165; 84300-TC; 84443-TC; 84484-TC; 85025-TC; 85027-TC; 86850-TC; 87040-TC; 87086-TC; A4223; G0378; J0696; J2405; J2543; J7030; J7050; J7060; P9016